=== PATIENT | male | born 1955 | race Caucasian/White ===

== ENCOUNTER 2019-06-21 08:49 | Outpatient (CLI) | payer OTHER, SELFPAY ==
[2019-06-21 09:26] LABS: Blood Urea Nitrogen 16 mg/dL (9-20); Calcium 8.9 mg/dL (8.4-10.2); Carbon Dioxide 27 mmol/L (22-30); Chloride 98 mmol/L (98-107); Estimated Glomerular Filt Rate > 60; Glucose 172 mg/dL (75-110); Potassium 4.6 mmol/L (3.4-5.0); Sodium 137 mmol/L (137-145)
== END 2019-06-21 08:50 | disposition home or self-care (01) ==
LOC: ANHSURGERY 08:52
PROVIDERS: Anesthesiology; PCP Family Medicine; Visit Provider Podiatrist Foot & Ankle Surgery
DX: E11.9 Type 2 diabetes mellitus without complications (principal)
CPT/HCPCS: 36415; 80048

== ENCOUNTER 2019-06-24 01:22 | Day surgery (SDC) | payer OTHER, SELFPAY ==
[2019-06-20 12:39] VITALS: BMI 36.9
--- NOTE | ~2019-06-24 | XR_ITS ---
EXAMINATION: XR surgery orthopedic DATE: 06/24/2019 12:07 INDICATION: Left fifth toe osteomyelitis. TECHNIQUE: 2 intraoperative spot fluoroscopic views of left foot were obtained. I was not present. Fl uoroscopy exposure time was 3 seconds. COMPARISON: None. FINDINGS: There are old changes of resection of the head of fifth metatarsal. There are erosions of b ase of the fifth proximal phalanx. The final image demonstrates resection of the fifth digit phalange s. IMPRESSION: 1. Resection of the fifth toe. Reviewed, dictated and finalized at location A. AI CULTURIST
--- NOTE | 2019-06-24 07:16 | WPDHPUPDATE1 ---
History and Physical Update Update Date/Time: 06/24/19 07:16 History and Physical has been reviewed, including an updated exam of the patient. There are NO changes in the patient's condition. Risks, benefits, and alternatives have been discussed and questions answered. Patient agrees to proceed with procedure.
[2019-06-24 08:53] VITALS: BP 155/76; PULSE 66; RESP 20; TEMP 35.8; O2SAT 100
[2019-06-24 09:27] LABS: Glucose Point of Care 126 (65-105)
--- NOTE | 2019-06-24 10:13 | WPDANESEPPF ---
Anes - Initial Pre Proc Eval Procedure: Operation Date: 06/24/19 10:30 Proposed Procedures p Partial Fifth Digit Ray Resection Left Foot - Yehuda Beckwith JR, MD Date/Time: 06/24/19 10:13 Surgeon: Yehuda Beckwith JR, MD Pre Op Diagnosis: Osteomyelitis Left Fifth Digit and Metatarsal Patient Data Age: 64 Gender: M Height: 1.75 m Weight: 118.4 kg Last Vital Signs Temp 35.8 C L 06/24/19 08:53 Pulse 66 06/24/19 08:53 Resp 20 06/24/19 08:53 BP 155/76 H 06/24/19 08:53 Pulse Ox 100 06/24/19 08:53 Allergies Allergy/AdvReac Type Severity Reaction Status Date / Time [id number]-Xce Reductase Allergy Severe SEVERE Verified 06/24/19 09:33 Inhibitor MUSCLE PAIN Home Medications Medication Instructions Recorded Confirmed Type acetaminophen [Tylenol] 650 mg PO PRN PRN 06/20/19 06/24/19 History aspirin [Adult Low Dose Aspirin] 81 mg PO DAILY 06/20/19 06/24/19 History cholecalciferol (vitamin D3) 2,000 unit PO DAILY 06/20/19 06/24/19 History docusate sodium 100 mg PO DAILY 06/20/19 06/24/19 History doxycycline hyclate 100 mg PO DAILY 06/20/19 06/24/19 History ezetimibe 10 mg PO DAILY 06/20/19 06/24/19 History famotidine 40 mg PO DAILY 06/20/19 06/24/19 History glipizide 10 mg PO BID 06/20/19 06/24/19 History insulin glargine [Lantus Solostar 20 unit SUBCUT HS 06/20/19 06/24/19 History U-100 Insulin] metformin 1,000 mg PO BID 06/20/19 06/24/19 History metoclopramide HCl 10 mg PO BID 06/20/19 06/24/19 History metoprolol succinate 25 mg PO DAILY 06/20/19 06/24/19 History omeprazole 20 mg PO DAILY 06/20/19 06/24/19 History Laboratory Tests 06/24/19 09:25 POC Capillary Glucose 126 mg/dl H mg/dl (65-105) Patient hx anesthesia problems: none Family hx anesthesia problems: none PMFSH Past Medical History Medical History (Updated 06/24/19 @ 10:19 by Earl Hare MD) Arthritis Atrial fibrillation CHF (congestive heart failure) ef 45% Diabetes Gastroesophageal reflux disease HTN (hypertension) Hypercholesterolemia PVD (peripheral vascular disease) 12/2018 LT LEG OPENED ARTERY AT [facility] Surgical History Surgical History (Updated 06/24/19 @ 10:15 by Earl Hare MD) Hx of coronary artery bypass graft 2014 4 VESSEL . PERICARDIAL EFFUSION- PERICARDIAL WINDOW Social History Social History Smoking status: Current every day smoker Alcohol intake: current Anes - Eval Final PreProcedure Day of Procedure 06/24/19 10:13 Patient weight: obese Heart: regular rate and rhythm Lungs: clear to auscultation and normal air movement Airway: Mallampati scale class II Neurological: alert and oriented Last oral intake: >/= 8 hours ASA classification: IV Emergent: no Anesthetic plan: proceed Anesthesia type and monitoring: general GIVS Informed Consent: The patient's anesthetic plan and its attendant risks and benefits were discussed with the patient/family/POA. Questions were solicited and answers provided to the satisfaction of the patient/family/POA.
[2019-06-24] MEDS: LACTATED RINGERS 1,000 ML 30 ML IV CONT ×2 (10:20→12:18)
[2019-06-24] MEDS: ceFAZolin 2 GM/D5W 50 ML 2 GM/50 ML BAG IVPB (11:29)
[2019-06-24] MEDS: LIDOCAINE HCL 2% PF INJ 5 ML VIAL 20 ML INFILTRATE (12:01)
[2019-06-24 12:18] VITALS: BP 117/65; PULSE 70; RESP 16; O2SAT 97
--- NOTE | 2019-06-24 12:20 | PM.OP ---
Procedure Note - Brief Procedure Note - Brief Date of procedure: 06/24/19 Pre-op diagnosis: Osteomyelitis Left Fifth Digit and Metatarsal Post-op diagnosis: same Procedure performed: Partial fifth ray resection left foot Anesthesia: MAC with local Surgeon: Yehuda Beckwith JR, DPM Estimated blood loss (mL): 1 Complications: No immediate complications Condition: stable Disposition: same day
[2019-06-24 12:45] VITALS: BP 119/65; PULSE 57; RESP 16; O2SAT 100
[2019-06-24 13:10] VITALS: BP 127/74; PULSE 60; RESP 16; O2SAT 100
--- NOTE | 2019-06-25 14:48 | OP_ITS ---
DATE OF PROCEDURE: 06/24/2019 PREOPERATIVE DIAGNOSIS: Osteomyelitis of the left 5th digit. POSTOPERATIVE DIAGNOSIS: Osteomyelitis of the left 5th digit. PROCEDURE: Partial fifth ray resection of the left foot. PATHOLOGY: Left 5th digit sent for gross and histopathology. ANESTHESIA: MAC with local. HEMOSTASIS: None. ESTIMATED BLOOD LOSS: 1 cc. MATERIALS USED: 3 L of sterile saline with the pulse lavage system, 4-0 Prolene. INJECTABLES: 20 cc of a 1:1 mixture of 2% lidocaine plain and 0.5% Marcaine plain. COMPLICATIONS: None. PROCEDURE IN DETAIL: Under mild sedation, patient was brought to the operating room and placed on the operating table in the supine position. The foot was then scrubbed, prepped, and draped in the usual aseptic manner. The patient had notable PAD, so tourniquet was not inflated. Procedure started in the following manner: Attention was directed to the 5th digit of the left foot where a tennis racket style incision was made along the base of the 5th digit of the left foot. This extended to the 5th metatarsal area. The incision was continued deep down through the subcutaneous tissues using sharp and blunt dissection. All bleeders were cauterized as necessary. Next the entire 5th digit was disarticulated and sent for gross and histopathology. At this point, the pulse lavage system was used to thoroughly flush the wound site with sterile saline. There was no remaining portion of the 5th digit. Fluoroscopy was taken before and after 5th digit resection. There was noted osteolysis to the base of the proximal phalanx prior to disarticulation of the 5th digit. Post disarticulation there were no remnants of that 5th digit noted. Next the skin was reapproximated and coapted utilizing 4-0 Prolene in horizontal mattress and simple interrupted suture technique. Upon completion of the procedure, the incision was dressed with Adaptic, 4x4s, Kerlix, and Coban. A postop shoe was then applied to the left foot. The patient tolerated the procedure and anesthesia well. He was transferred to the recovery room with vital signs stable and vascular status intact to all toes of the left foot. Following a period of postoperative monitoring, the patient will be discharged home on the following written and oral postoperative instructions: 1. Keep the dressing clean, dry, and intact. 2. Avoid excessive ambulation. 3. Ice and elevate the left foot when at rest. 4. Wear surgical shoe at all times with ambulating. 5. Contact Dr. Beckwith for all postop care and if any problems arise. 6. The patient already has prescription for pain medication at home that can be taken every 4-6 hours. He is neuropathic, so will likely not require any pain medication. D I MT: Contreras
== END 2019-06-24 13:20 | disposition home or self-care (01) ==
PROVIDERS: PCP Family Medicine; Visit Provider Podiatrist Foot & Ankle Surgery
PROC: (CPT 28104; principal; 2019-06-24 10:30)
DX: M86.8X7 Other osteomyelitis, ankle and foot (principal); E11.69 Type 2 diabetes mellitus with other specified complication; I11.0 Hypertensive heart disease with heart failure; I50.9 Heart failure, unspecified; E11.51 Type 2 diabetes mellitus with diabetic peripheral angiopathy without gangrene; K21.9 Gastro-esophageal reflux disease without esophagitis; I48.91 Unspecified atrial fibrillation; Z79.4 Long term (current) use of insulin; Z79.84 Long term (current) use of oral hypoglycemic drugs; Z79.82 Long term (current) use of aspirin; F17.210 Nicotine dependence, cigarettes, uncomplicated; E66.9 Obesity, unspecified; Z68.38 Body mass index [BMI] 38.0-38.9, adult
CPT/HCPCS: 28810; 76000; 88305; 88311; J0690; J2250; J2704; J3010; J7120

== ENCOUNTER 2019-08-29 08:49 | Outpatient (CLI) | payer OTHER, SELFPAY ==
[2019-08-29 09:23] LABS: Hemoglobin A1C 8.4 % (<5.7)
[2019-08-29 09:26] LABS: Cholesterol 160 mg/dL (0-200); HDL Direct 38 mg/dL; Triglycerides 144 mg/dL (<150)
[2019-08-29 09:37] LABS: LDL Cholesterol Direct 117 mg/dL
[2019-08-29 09:39] LABS: Creatinine Urine 139.2 mg/dL
[2019-08-29 09:43] LABS: MALB Creatinine Ratio 9.5 mg/g (0-30); Microalbumin Urine Random 13.2 mg/L (0-16.7)
== END 2019-08-29 08:50 | disposition home or self-care (01) ==
PROVIDERS: PCP Family Medicine; Visit Provider Family Medicine
DX: E11.59 Type 2 diabetes mellitus with other circulatory complications (principal); E78.5 Hyperlipidemia, unspecified
CPT/HCPCS: 36415; 80061; 82043; 83036

== ENCOUNTER 2020-05-14 12:17 | Emergency (ER) | payer OTHER, MEDICARE, SELFPAY ==
--- NOTE | ~2020-05-14 | XR_ITS ---
EXAMINATION: XR ribs LT 2V w CXR 2V DATE: 05/14/2020 13:02 INDICATION: Left chest injury and pain. TECHNIQUE: Frontal and lateral views of the chest and 3 views of the left ribs were obtained. COMPARISON: Chest 2 views 12/17/2017, CT abdomen and pelvis 02/26/2019 FINDINGS: CHEST TWO VIEWS: The chest demonstrates clear lungs without pneumonia, pleural effusion, or pneumotho rax. The heart size is normal. Median sternotomy wires and mediastinal surgical clips are seen, likel y from prior coronary artery bypass grafting. LEFT RIBS: There is no rib fracture. IMPRESSION: 1. No rib fracture. Reviewed, dictated and finalized at location A. NSED ACUPUNCTURIST IMPRESSION: 1. No rib fracture.
--- NOTE | 2020-05-14 12:21 | ED.GENADULT ---
HPI - General Adult General Chief complaint: Fall Stated complaint: left side pain Time Seen by Provider: 05/14/20 12:21 Source: patient Mode of arrival: ambulatory Limitations: no limitations History of Present Illness HPI narrative: 65-year-old male patient presents to the [facility] with complaints of left-sided rib pain for the past 3 days. Patient states he was at work at [employer] this past Thursday and states that he got his foot caught in a palate and tripped and fell down landing on the left side of his ribs. Denies hitting his head or loss of consciousness. Patient states he also scratched the left anterior rosado area. Patient states he has been taking Tylenol for his pain but states that he noticed that the pain was getting worse especially with deep breathing, coughing or hiccuping. Related Data Home Medications Medication Instructions Recorded Confirmed acetaminophen [Tylenol] 650 mg PO PRN PRN 06/20/19 03/07/20 aspirin [Adult Low Dose Aspirin] 81 mg PO DAILY 06/20/19 03/07/20 cholecalciferol (vitamin D3) 2,000 unit PO DAILY 06/20/19 03/07/20 docusate sodium 100 mg PO DAILY 06/20/19 03/07/20 Allergies Allergy/AdvReac Type Severity Reaction Status Date / Time Bclpevz-Ajm-Dxq Reductase Allergy Severe SEVERE Verified 03/07/20 10:22 Inhibitor MUSCLE PAIN Review of Systems Review of Systems: Narrative: CONSTITUTIONAL: Denies fever, chills, or sweats. EYES: Denies visual changes, redness, or discharge. ENT: Denies rhinorrhea, congestion, sore throat, or otalgia. CARDIOVASCULAR: Denies chest pain, palpitations, or edema. RESPIRATORY: Denies cough or dyspnea. GASTROINTESTINAL: Denies abdominal pain, nausea, vomiting, or diarrhea. GENITOURINARY: Denies dysuria or hematuria. SKIN: Denies rash or itching. MUSCULOSKELETAL: Denies back pain, joint pain, or myalgia. Positive left-sided rib pain NEUROLOGIC: Denies headache, numbness, or weakness. PSYCHIATRIC: Denies anxiety or depression. COUNTS INCLUDE 234 BEDS AT THE [facility] Past Medical History Medical History Amputated toe Atrial fibrillation -post op CABG CAD (coronary artery disease) CHF (congestive heart failure) ef 45% Diabetes Diabetic peripheral neuropathy Gastroesophageal reflux disease Gastroparesis due to DM 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 History of gout in currently not on any medications no flare-ups History of pericarditis 09/2014 - pot CABG, s/p peicardial window HTN (hypertension) Hypercholesterolemia Osteoarthritis PVD (peripheral vascular disease) 12/2018 LT LEG OPENED ARTERY AT [facility] Vitamin D deficiency Surgical History Surgical History History of angioplasty of peripheral vessel 12/2018 - LLE History of hydrocelectomy 08/2011 left Hx of coronary artery bypass graft 2014 4 VESSEL . PERICARDIAL EFFUSION- PERICARDIAL WINDOW Social History Social History Smoking status: Former smoker Alcohol intake: current Comments At the time of my signature I agree with nursing past medical history, surgical, social, and family history. There is no relevant family history pertinent to the presenting complaint. Exam Narrative: Exam Narrative: GENERAL: Well-appearing, well-nourished, and in no acute distress. HEAD: Normocephalic, atraumatic. EYES: PERRLA and EOMI. ENT: Nares clear, no rhinorrhea or epistaxis. Mucous membranes moist. NECK: Supple. No lymphadenopathy CHEST: Clear to auscultation. No respiratory distress. Patient has slight tenderness noted to the left lateral lower rib around the ninth/10th rib area. No obvious ecchymosis, bruising or redness noted at this time. HEART: Regular rate and rhythm. No murmur heard. Normal peripheral pulses. ABDOMEN: Soft, nontender, nondistended, normal active bowel sounds. EXTREMITIES:
[2020-05-14 12:32] VITALS: BP 162/74; PULSE 73; RESP 20; TEMP 36.2; O2SAT 99
== END 2020-05-14 13:18 | disposition home or self-care (01) ==
PROVIDERS: Emergency Provider Nurse Practitioner Family; PCP Family Medicine
DX: R07.81 Pleurodynia (principal); Z87.891 Personal history of nicotine dependence; I11.0 Hypertensive heart disease with heart failure; I50.9 Heart failure, unspecified; I25.10 Atherosclerotic heart disease of native coronary artery without angina pectoris; E11.42 Type 2 diabetes mellitus with diabetic polyneuropathy; E78.00 Pure hypercholesterolemia, unspecified; I73.9 Peripheral vascular disease, unspecified; Z95.1 Presence of aortocoronary bypass graft; Z98.62 Peripheral vascular angioplasty status; E11.43 Type 2 diabetes mellitus with diabetic autonomic (poly)neuropathy; K31.84 Gastroparesis; E55.9 Vitamin D deficiency, unspecified
CPT/HCPCS: 71046; 71100; 99213; G0463

== ENCOUNTER 2020-06-26 10:59 | Outpatient (CLI) | payer OTHER, MEDICARE, SELFPAY ==
[2020-06-26 11:47] LABS: Alanine Aminotransferase 29 U/L (4-50); Albumin Level 3.9 g/dL (3.5-5.1); Alkaline Phosphatase 94 U/L (38-126); Anion Gap 5 mmol/L (8-16); Aspartate Amino Transferase 24 U/L (17-59); Bilirubin,Total 0.6 mg/dL (0.2-1.3); Blood Urea Nitrogen 13 mg/dL (9-20); Calcium 8.8 mg/dL (8.4-10.2); Carbon Dioxide 31 mmol/L (22-30); Chloride 101 mmol/L (98-107); Cholesterol 117 mg/dL (0-200); Estimated Glomerular Filt Rate > 60; Glucose 254 mg/dL (75-110); HDL Direct 38 mg/dL; Potassium 5.2 mmol/L (3.4-5.0); Sodium 137 mmol/L (137-145); Triglycerides 118 mg/dL (<150)
[2020-06-26 11:55] LABS: Hemoglobin A1C 11.3 % (<5.7)
[2020-06-26 11:58] LABS: LDL Cholesterol Direct 64 mg/dL
[2020-06-26 12:02] LABS: Basophils Percent Auto 0.5 % (0.2-1.2); Eosinophils Absolute Auto 0.1 K/mm3 (0-0.3); Hematocrit 41.2 % (42.0-52.0); Immature Granulocyte Absolute 0.06 K/mm3 (0.00-0.031); Immature Granulocyte Percent A 1.1 % (0-0.5); Lymphocytes Absolute Auto 1.13 K/mm3 (0.9-3.2); Lymphocytes Percent Auto 20.1 % (18.3-44.2); Mean Corpuscular Hemoglobin 30.8 pg (26-34); Mean Corpuscular Volume 90.7 fl (80-100); Mean Platelet Volume 11.2 fl (7.4-10.4); Monocytes Absolute Auto 0.5 K/mm3 (0.1-0.6); Monocytes Percent Auto 8.9 % (2.6-8.5); Neutrophils Absolute Auto 3.8 K/mm3 (1.3-6.7); Neutrophils Percent Auto 67.4 % (45.5-73.1); Platelet Count Result 209 k/mm3 (150-375); Red Blood Count 4.54 M/mm3 (4.6-6.20); Red Cell Distribution Width 13.3 % (11.5-14.5); White Blood Count 5.6 K/mm3 (4.5-10.0)
[2020-06-26 12:17] LABS: Vitamin D 25 Hydroxy 38.9 ng/mL
[2020-06-26 12:18] LABS: Prostate Specific Antigen 2.4 ng/mL (< OR = 4.0)
[2020-06-26 12:31] LABS: Thyroid Stimulating Hormone Reflex 0.684 uIU/mL (0.465-4.68)
[2020-06-26 12:58] LABS: Microalbumin Urine Random 17.6 mg/L (0-16.7)
[2020-06-26 12:59] LABS: MALB Creatinine Ratio 11.4 mg/g (0-30)
== END 2020-06-26 11:00 | disposition home or self-care (01) ==
PROVIDERS: PCP Family Medicine; Visit Provider Family Medicine
DX: Z00.00 Encounter for general adult medical examination without abnormal findings (principal); E55.9 Vitamin D deficiency, unspecified; E11.9 Type 2 diabetes mellitus without complications; E78.5 Hyperlipidemia, unspecified; I10 Essential (primary) hypertension; Z12.5 Encounter for screening for malignant neoplasm of prostate; E78.00 Pure hypercholesterolemia, unspecified
CPT/HCPCS: 36415; 80053; 80061; 82043; 82306; 83036; 84153; 84443; 85025; G0103

== ENCOUNTER 2020-11-08 09:32 | Outpatient (CLI) | payer OTHER, MEDICARE, SELFPAY ==
[2020-11-08 10:36] LABS: Alanine Aminotransferase 24 U/L (4-50); Alkaline Phosphatase 68 U/L (38-126); Anion Gap 7 mmol/L (8-16); Aspartate Amino Transferase 26 U/L (17-59); Bilirubin,Total 0.6 mg/dL (0.2-1.3); Blood Urea Nitrogen 19 mg/dL (9-20); Calcium 8.9 mg/dL (8.4-10.2); Carbon Dioxide 28 mmol/L (22-30); Chloride 103 mmol/L (98-107); Estimated Glomerular Filt Rate > 60; Glucose 172 mg/dL (75-110); Potassium 4.8 mmol/L (3.4-5.0); Sodium 138 mmol/L (137-145)
== END 2020-11-08 09:33 | disposition home or self-care (01) ==
LOC: ANHLAB 09:34
PROVIDERS: PCP Family Medicine; Visit Provider Family Medicine
DX: I10 Essential (primary) hypertension (principal); E11.9 Type 2 diabetes mellitus without complications
CPT/HCPCS: 36415; 80053; 83036

== ENCOUNTER 2021-03-13 08:42 | Outpatient (CLI) | payer OTHER, MEDICARE, SELFPAY ==
[2021-03-13 09:26] LABS: Anion Gap 11 mmol/L (8-16); Blood Urea Nitrogen 18 mg/dL (9-20); Calcium 8.9 mg/dL (8.4-10.2); Carbon Dioxide 25 mmol/L (22-30); Chloride 101 mmol/L (98-107); Estimated Glomerular Filt Rate > 60; Glucose 275 mg/dL (65-110); Potassium 4.8 mmol/L (3.4-5.0); Sodium 137 mmol/L (137-145)
== END 2021-03-13 08:43 | disposition home or self-care (01) ==
PROVIDERS: Anesthesiology; PCP Family Medicine; Visit Provider Podiatrist Foot & Ankle Surgery
DX: E11.9 Type 2 diabetes mellitus without complications (principal); Z01.818 Encounter for other preprocedural examination
CPT/HCPCS: 36415; 80048

== ENCOUNTER 2021-03-15 02:23 | Day surgery (SDC) | payer OTHER, MEDICARE, SELFPAY ==
[2021-03-08 13:16] VITALS: BMI 38.4
--- NOTE | ~2021-03-15 | XR_ITS ---
EXAMINATION: XR surgery orthopedic DATE: 03/15/2021 11:15 INDICATION: Right fifth metatarsal osteotomy TECHNIQUE: A single fluoroscopic spot image of the right forefoot was obtained during procedure perfo rmed by Dr. Beckwith. Radiologist was not present for the imaging or procedure. The amount of fluoros copy time used during this procedure was 0.1 minutes. COMPARISON: None. FINDINGS: Osteotomy with resection of the head of the fifth metatarsal. The remainder of the more distal fifth toe remains intact. Expected small amount of soft tissue gas at the operative bed. No fracture. Mild osteoarthritis at the first metatarsophalangeal joint. IMPRESSION: 1. Fluoroscopy utilized during resection of the head of the fifth metatarsal. See procedure note for further detail. Reviewed, dictated and finalized at location A. IMPRESSION: 1. Fluoroscopy utilized during resection of the head of the fifth metatarsal. S ee procedure note for further detail.
--- NOTE | 2021-03-15 08:02 | WPDHPUPDATE1 ---
History and Physical Update Update Date/Time: 03/15/21 08:02 History and Physical has been reviewed, including an updated exam of the patient. There are NO changes in the patient's condition. Risks, benefits, and alternatives have been discussed and questions answered. Patient agrees to proceed with procedure.
--- NOTE | 2021-03-15 09:57 | WPDANESEPPF ---
Anes - Initial Pre Proc Eval Procedure: Operation Date: 03/15/21 10:30 Proposed Procedures p Fifth Metatarsal Head Resection Right Foot - Yehuda Beckwith JR, MD Date/Time: 03/15/21 09:57 Surgeon: Yehuda Beckwith JR, MD Pre Op Diagnosis: Chronic Ulcer Right Foot Patient Data Age: 66 Gender: M Height: 1.75 m Weight: 117.93 kg Allergies Allergy/AdvReac Type Severity Reaction Status Date / Time No Known Allergies Allergy Verified 03/08/21 13:13 Home Medications Medication Instructions Recorded Confirmed Type acetaminophen [Tylenol] 650 mg PO PRN PRN 06/20/19 03/08/21 History aspirin [Adult Low Dose Aspirin] 81 mg PO DAILY 06/20/19 03/08/21 History cholecalciferol (vitamin D3) 2,000 unit PO DAILY 06/20/19 03/08/21 History docusate sodium 100 mg PO HS 06/20/19 03/08/21 History metoclopramide HCl 10 mg tablet 10 mg PO BID #180 tablet 09/12/19 03/08/21 Rx pen needle, diabetic 31 gauge x #100 ea 09/18/20 12/31/20 Rx 5/16 metoprolol succinate 25 mg 25 mg PO DAILY #90 tablet 12/17/20 03/08/21 Rx tablet,extended release 24 hr insulin glargine 100 unit/mL (3 35 unit SUBCUT DAILY #21 ml 12/31/20 03/08/21 Rx mL) subcutaneous pen glipizide 10 mg tablet 10 mg PO BID #120 tablet 02/19/21 03/08/21 Rx atorvastatin 40 mg PO HS 03/08/21 03/08/21 History ezetimibe 10 mg PO HS 03/08/21 03/08/21 History sitagliptin-metformin [Janumet XR] 1 tablet PO HS 03/08/21 03/08/21 History Patient hx anesthesia problems: none Family hx anesthesia problems: none Results Review: All pre-operative results and documents have been reviewed as part of the pre-operative evaluation. [facility] Past Medical History Medical History Amputated toe Atrial fibrillation -post op CABG CAD (coronary artery disease) CHF (congestive heart failure) ef 45% Diabetes Diabetic Foot Ulcer Diabetic peripheral neuropathy Gastroesophageal reflux disease Gastroparesis due to DM 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 History of gout in currently not on any medications no flare-ups History of pericarditis 09/2014 - pot CABG, s/p peicardial window HTN (hypertension) Hypercholesterolemia Osteoarthritis PVD (peripheral vascular disease) 12/2018 LT LEG OPENED ARTERY AT [facility] Vitamin D deficiency Surgical History Surgical History History of angioplasty of peripheral vessel 12/2018 - LLE History of hydrocelectomy 08/2011 left Hx of coronary artery bypass graft 2014 4 VESSEL . PERICARDIAL EFFUSION- PERICARDIAL WINDOW Social History Social History Smoking packs per day: 1 Smoking cigarettes per day: 20.0 Years smoked: 35 Smoking pack-years: 35.00 Smoking status: Former smoker Smoking end date: 05/25/10 Alcohol intake: never Substance use: never Substance use type: does not use Living arrangements: with family Additional living arrangements comments: Gender identity (if verbalized by the patient): Male Sexual Orientation (if Verbalized by the Patient): Straight or Heterosexual Spiritual care concerns: No Anes - Eval Final PreProcedure Day of Procedure 03/15/21 09:57 Patient weight: obese Heart: regular rate and rhythm Lungs: clear to auscultation Airway: Mallampati scale class II Neurological: alert and oriented Last oral intake: >/= 8 hours ASA classification: IV Emergent: no Anesthetic plan: proceed Anesthesia type and monitoring: general LMA and standard monitoring Results Review: All pre-operative results and documents have been reviewed as part of the pre-operative evaluation. Informed Consent: The patient's anesthetic plan and its attendant risks and benefits were discussed with the patient/family/POA. Questions were solicited and answers provided to the satisfacti
[2021-03-15] MEDS: LACTATED RINGERS 1,000 ML 30 ML IV CONT (10:00)
[2021-03-15 10:15] VITALS: BP 148/83; PULSE 71; RESP 16; TEMP 36.1; O2SAT 100
[2021-03-15 10:19] LABS: Glucose Point of Care 173 mg/dl (65-105)
[2021-03-15] MEDS: ceFAZolin 2 GM/D5W 50 ML 2 GM/50 ML BAG IVPB (10:44)
[2021-03-15] MEDS: LIDOCAINE HCL 2% PF INJ 5 ML VIAL 20 ML INFILTRATE (11:01)
[2021-03-15 11:19] VITALS: BP 118/67; PULSE 72; RESP 16; O2SAT 98
[2021-03-15 11:28] LABS: Glucose Point of Care 150 mg/dl (65-105)
[2021-03-15 11:45] VITALS: BP 127/82; PULSE 66; RESP 16; O2SAT 99
--- NOTE | 2021-03-15 11:59 | W.PM.PROC2 ---
Procedure Note - Detailed Date of Procedure 03/15/21 Pre-op Diagnosis Chronic Ulcer Right Foot Post-op Diagnosis same Procedure Performed Fifth metatarsal head resection right foot Surgeon Yehuda Beckwith JR, DPM Anesthesia MAC and local Indications Chronic ulceration right foot Description of Procedure Under mild sedation, the patient was brought in to the operating room, placed on the operating table in the supine position. A pneumatic ankle tourniquet was placed about the patient's leg. Following monitored anesthesia care, local anesthesia was obtained about the patients ankle utilizing 20 mL of a 1:1 mixture of 2% Lidocaine plain and 0.5% Marcaine plain. The foot was then scrubbed, prepped, and draped in the usual aseptic manner. An Esmarch bandage was then used to exsanguinate the patient's foot and the pneumatic ankle tourniquet was then inflated. Attention was directed to the dorsal lateral aspect of the fifth metatarsal head where a 2 cm incision was made just lateral to the extensor digitorum longus tendon to the fifth digit to the shaft of the fifth metatarsal. The incision was continued deep down through the subcutaneous tissues using sharp and blunt dissection. All bleeders were cauterized as necessary.A full-length periosteal incision was made overlying the fifth metatarsal distally. A McGlamry Elevator was used to free the plantar structures to the fifth metatarsal head. Next, a sagittal bone saw was used to resect the head of the fifth metatarsal proximal at the neck of the 5th metatarsal. The fifth metatarsal was removed from the operative site and placed on the back table and sent for gross and histopathology. No gross abnormalities to the head of the fifth metatarsal noted. No purulence noted. Fluoroscopy was used to make sure that the resected distal fifth metatarsal was adequate. The edges were smoothed out by feathering with the saw blade. Next, the periosteum and capsular structures overlying the 5th metatarsophalangeal joints were reapproximated with 4-0 Vicryl. Next, subcutaneous structures were reapproximated and coapted utilizing 4-0 Vicryl. Next, the skin was reapproximated and coapted utilizing 4-0 Prolene in running simple interrupted suture fashion technique. Upon completion of the procedure, the incision was dressed with Adaptic, 4 x 4's, Kerlix, and Coban. The pneumatic ankle tourniquet was then deflated and a prompt hyperemic response noted to all digits of the foot. A surgical shoe was then applied. The patient did very well with the procedure and the anesthesia. The patient was transferred to the recovery room with vital signs stable and vascular status intact to all toes of the affected foot. Following a period of postoperative monitoring, the patient will be discharged home on the following written and oral postoperative instructions: 1. Keep the dressing clean, dry, and intact. Use a cast protector bag with showers. 2. The patient should use a surgical shoe for ambulation postoperatively. 3. The patient should be on bedrest with bathroom privileges and elevate the affected foot when at rest. 4. The patient to contact Dr. Beckwith for all postop care and if any problems arise. 5. The patient may need Tylenol 325 as needed for pain. 6. Take one Aspirin 325mg every 24hours for two weeks post operatively to prevent DVT. Estimated Blood Loss 1 Drains No Packing No Pathology yes Complications No immediate complications Condition stable Disposition same day
[2021-03-15 12:15] VITALS: BP 139/62; PULSE 68; RESP 16
--- NOTE | 2021-03-15 14:00 | SUR.PHASEII ---
1230 DRESSED. STILL AWAITING RIDE.
== END 2021-03-15 13:22 | disposition home or self-care (01) ==
PROVIDERS: PCP Family Medicine; Visit Provider Podiatrist Foot & Ankle Surgery
PROC: (CPT 28104; principal; 2021-03-15 10:30)
DX: E11.621 Type 2 diabetes mellitus with foot ulcer (principal); L97.519 Non-pressure chronic ulcer of other part of right foot with unspecified severity; M21.621 Bunionette of right foot; E11.51 Type 2 diabetes mellitus with diabetic peripheral angiopathy without gangrene; E11.42 Type 2 diabetes mellitus with diabetic polyneuropathy; I48.91 Unspecified atrial fibrillation; I11.0 Hypertensive heart disease with heart failure; I50.9 Heart failure, unspecified; K21.9 Gastro-esophageal reflux disease without esophagitis; E11.43 Type 2 diabetes mellitus with diabetic autonomic (poly)neuropathy; K31.84 Gastroparesis; E78.00 Pure hypercholesterolemia, unspecified; E55.9 Vitamin D deficiency, unspecified; Z95.1 Presence of aortocoronary bypass graft; Z87.891 Personal history of nicotine dependence; E66.9 Obesity, unspecified; Z68.41 Body mass index [BMI] 40.0-44.9, adult; Z79.4 Long term (current) use of insulin; Z79.84 Long term (current) use of oral hypoglycemic drugs
CPT/HCPCS: 28110; 36415; 80048; 82948; 88304; 88309; 88311; A9270; J0690; J2704; J7120

== ENCOUNTER 2021-04-29 08:45 | Outpatient (CLI) | payer OTHER, MEDICARE, SELFPAY ==
[2021-04-29 09:40] LABS: Basophils Percent Auto 0.4 % (0.2-1.2); Eosinophils Absolute Auto 0.1 K/mm3 (0-0.3); Eosinophils Percent Auto 1.8 % (0-4.4); Hematocrit 41.2 % (42.0-52.0); Hemoglobin 13.7 g/dL (14.0-18.0); Immature Granulocyte Absolute 0.03 K/mm3 (0.00-0.031); Immature Granulocyte Percent A 0.5 % (0-0.5); Lymphocytes Absolute Auto 1.22 K/mm3 (0.9-3.2); Mean Corpuscular HGB Conc 33.3 g/dl (32-36); Mean Corpuscular Hemoglobin 31.1 pg (26-34); Mean Corpuscular Volume 93.6 fl (80-100); Mean Platelet Volume 10.8 fl (7.4-10.4); Monocytes Absolute Auto 0.5 K/mm3 (0.1-0.6); Monocytes Percent Auto 8.1 % (2.6-8.5); Neutrophils Absolute Auto 3.7 K/mm3 (1.3-6.7); Neutrophils Percent Auto 67.2 % (45.5-73.1); Platelet Count Result 191 k/mm3 (150-375); Red Cell Distribution Width 13.5 % (11.5-14.5); White Blood Count 5.5 K/mm3 (4.5-10.0)
[2021-04-29 09:44] LABS: Hemoglobin A1C 9.5 % (<5.7)
[2021-04-29 09:49] LABS: Alanine Aminotransferase 30 U/L (4-50); Albumin Level 4.2 g/dL (3.5-5.1); Alkaline Phosphatase 88 U/L (38-126); Anion Gap 9 mmol/L (8-16); Aspartate Amino Transferase 32 U/L (17-59); Bilirubin,Total 0.5 mg/dL (0.2-1.3); Blood Urea Nitrogen 16 mg/dL (9-20); Calcium 8.9 mg/dL (8.4-10.2); Carbon Dioxide 25 mmol/L (22-30); Chloride 99 mmol/L (98-107); Cholesterol 131 mg/dL (0-200); Estimated Glomerular Filt Rate > 60; Glucose 155 mg/dL (65-110); HDL Direct 31 mg/dL; Potassium 4.5 mmol/L (3.4-5.0); Sodium 133 mmol/L (137-145); Triglycerides 101 mg/dL (<150)
[2021-04-29 10:00] LABS: LDL Cholesterol Direct 76 mg/dL
[2021-04-29 10:18] LABS: Prostate Specific Antigen 2.9 ng/mL (< OR = 4.0)
[2021-04-29 11:54] LABS: Microalbumin Urine Random 15.8 mg/L (0-16.7)
[2021-04-29 11:56] LABS: Creatinine Urine 147.4 mg/dL; MALB Creatinine Ratio 10.7 mg/g (0-30)
[2021-04-29 13:36] LABS: Vitamin D 25 Hydroxy 48.9 ng/mL
== END 2021-04-29 08:46 | disposition home or self-care (01) ==
PROVIDERS: PCP Family Medicine; Visit Provider Family Medicine
DX: Z00.00 Encounter for general adult medical examination without abnormal findings (principal); E11.9 Type 2 diabetes mellitus without complications; E53.8 Deficiency of other specified B group vitamins; I10 Essential (primary) hypertension; Z12.5 Encounter for screening for malignant neoplasm of prostate; E55.9 Vitamin D deficiency, unspecified; E78.5 Hyperlipidemia, unspecified
CPT/HCPCS: 36415; 80053; 80061; 82043; 82306; 82607; 83036; 84153; 84443; 85025; G0103

== ENCOUNTER 2021-07-23 10:45 | Outpatient (CLI) | payer MEDICARE, SELFPAY ==
--- NOTE | ~2021-07-23 | CT_ITS ---
EXAMINATION: CT lung screening DATE: 07/23/2021 11:27 INDICATION: Screening for malignant neoplasm of the lung TECHNIQUE: Computed tomography (CT) of the chest was performed without intravenous contrast. The dose -length product was 428.02 mGy-cm. Automated exposure control and iterative reconstruction technique were employed. COMPARISON: CT dated 10/15/2014 FINDINGS: No thoracic lymphadenopathy. There is atherosclerosis of the aorta and coronary arteries. S tatus post median sternotomy for CABG. Heart size normal. No significant pleural or pericardial effus ion. There are cholecystectomy clips. There is a nonobstructing 3 mm right renal stone. No endobronch ial lesions. No suspicious pulmonary nodules or masses. No endobronchial lesions. No pneumothorax. Mo derate thoracic spondylosis. IMPRESSION: 1. Lung-RADS category 1: Negative. Continue annual screening with noncontrast low-dose chest CT in 12 months. Reviewed, dictated and finalized at location A. CAL DESIGN ENGINEER IMPRESSION: 1. Lung-RADS category 1: Negative. Continue annual screening with noncontrast l ow-dose chest CT in 12 months.
== END 2021-07-23 10:46 | disposition home or self-care (01) ==
PROVIDERS: PCP Family Medicine; Visit Provider Family Medicine
DX: Z12.2 Encounter for screening for malignant neoplasm of respiratory organs (principal); Z87.891 Personal history of nicotine dependence
CPT/HCPCS: 71271

== ENCOUNTER 2021-12-14 08:02 | Inpatient (IN) | payer OTHER, MEDICARE, SELFPAY ==
[2021-12-14] VITALS (12 sets, daily range): BP systolic 150–185; BP diastolic 64–97; PULSE 70–99; RESP 16–20; TEMP 36.2–36.8; O2SAT 97–100; BMI 37.4
--- NOTE | ~2021-12-14 | US_ITS ---
EXAMINATION: US arterial ankle brachial ind DATE: 12/15/2021 15:18 INDICATION: Peripheral arterial occlusive disease presenting with foot ulcerations. TECHNIQUE: Segmental pressures and plethysmographic and Doppler waveforms of the brachial and lower e xtremity arteries were obtained. COMPARISON: None. FINDINGS: Right and left brachial artery pressures of 186 mm Hg and 191 mm Hg, respectively, are concordant (no rmal difference <= 30 mmHg). The right ankle-brachial index (MAYDA) is 0.77 (normal >= 0.9-1.0). The right great toe-brachial index (TBI) is 0.51 (normal >= 0.65). Arterial Doppler waveforms are biphasic with brisk systolic upstrokes at both right posterior tibial and dorsalis pedis arteries. The left MAYDA is 0.88. The left TBI is 0.64. Arterial Doppler waveforms are biphasic with brisk systol ic upstrokes at both left posterior tibial and dorsalis pedis arteries. IMPRESSION: 1. Mild bilateral arterial occlusive disease with mildly decreased bilateral ABIs and right TBI. Reviewed, dictated and finalized at location A. IMPRESSION: 1. Mild bilateral arterial occlusive disease with mildly decreased bilateral AB Is and right TBI.
--- NOTE | ~2021-12-14 | XR_ITS ---
EXAMINATION: XR foot LT 2V DATE: 12/17/2021 15:04 INDICATION: Status post surgery to the left foot TECHNIQUE: Dorsoplantar and lateral views of the left foot were obtained. COMPARISON: 12/14/2021 FINDINGS: Again seen are changes of prior transmetatarsal amputation of the fifth toe at the level of the neck of the fifth metatarsal which demonstrates a smooth corticated osteotomy margin. Amputation of the di stal phalanx of the left fourth toe at the level of the distal interphalangeal joint. Expected minima l amount of postoperative gas in the soft tissues at level of the neck of the proximal phalanx. Bone alignment is normal. No fractures identified. Mild polyarticular osteoarthritis involving multiple shaila ints in the mid and forefoot. No erosions or osteolysis to suggest ostomy myelitis of the remaining b ones. Enthesophytes at the dorsal aspect of several of the tarsal bones and at the posterior tuberosi ty of the calcaneus. IMPRESSION: 1. Expected appearance post amputation of the distal phalanx of the left fourth toe the level of the distal interphalangeal joint. No other acute osseous abnormality. Reviewed, dictated and finalized at location A. IMPRESSION: 1. Expected appearance post amputation of the distal phalanx of the left fourth toe the level of the distal interphalangeal joint. No other acute osseous abno rmality.
--- NOTE | ~2021-12-14 | XR_ITS ---
XR toe 4th LT min 2V 12/14/2021 08:34 Indication: Left fourth toe pain. Diabetic foot. Procedure: 4 views left fourth toe Comparison: No prior studies for comparison. Findings: There is subtle osteolysis tuft of the fourth distal phalanx with overlying soft tissue swe lling, suspicious for osteomyelitis. There is amputation of the fifth toe at the metatarsal. Impression: 1: Subtle osteolysis tuft of the fourth distal phalanx with overlying soft tissue swelling, suspiciou s for osteomyelitis. Reviewed, dictated and finalized at location A. Impression: 1: Subtle osteolysis tuft of the fourth distal phalanx with overlying soft tiss ue swelling, suspicious for osteomyelitis.
[2021-12-14 08:31] LABS: Basophils Percent Auto 0.3 % (0.2-1.2); Eosinophils Absolute Auto 0.1 K/mm3 (0-0.3); Eosinophils Percent Auto 2.2 % (0-4.4); Hematocrit 39.9 % (42.0-52.0); Hemoglobin 13.1 g/dL (14.0-18.0); Immature Granulocyte Absolute 0.02 K/mm3 (0.00-0.031); Immature Granulocyte Percent A 0.3 % (0-0.5); Lymphocytes Absolute Auto 0.97 K/mm3 (0.9-3.2); Lymphocytes Percent Auto 16.4 % (18.3-44.2); Mean Corpuscular HGB Conc 32.8 g/dl (32-36); Mean Corpuscular Volume 94.3 fl (80-100); Mean Platelet Volume 10.3 fl (7.4-10.4); Monocytes Absolute Auto 0.5 K/mm3 (0.1-0.6); Neutrophils Absolute Auto 4.2 K/mm3 (1.3-6.7); Neutrophils Percent Auto 71.8 % (45.5-73.1); Platelet Count Result 215 k/mm3 (150-375); Red Blood Count 4.23 M/mm3 (4.6-6.20); Red Cell Distribution Width 14.1 % (11.5-14.5); White Blood Count 5.9 K/mm3 (4.5-10.0)
[2021-12-14 08:49] LABS: Alanine Aminotransferase 26 U/L (6-50); Albumin Level 4.3 g/dL (3.5-5.1); Alkaline Phosphatase 79 U/L (38-126); Anion Gap 7 mmol/L (8-16); Aspartate Amino Transferase 28 U/L (17-59); Bilirubin,Total 0.8 mg/dL (0.2-1.3); Blood Urea Nitrogen 13 mg/dL (9-20); CRP 1.2 mg/dL (<1.0); Calcium 8.7 mg/dL (8.4-10.2); Carbon Dioxide 27 mmol/L (22-30); Chloride 102 mmol/L (98-107); Estimated CRCL calculation 85 ml/min; Estimated Glomerular Filt Rate > 60; Glucose 244 mg/dL (65-110); Potassium 4.5 mmol/L (3.4-5.0); Sodium 136 mmol/L (137-145)
--- NOTE | 2021-12-14 08:58 | ED.LOWEXIN ---
HPI - Extremity Injury (Lower) General Chief Complaint: Extremity Injury, Lower Stated Complaint: wound to foot Time Seen by Provider: 12/14/21 08:08 Source: patient, RN notes reviewed and old records reviewed Mode of arrival: ambulatory Limitations: no limitations History of Present Illness HPI Narrative: This is a 66 year old male with history of DM who presents for evaluation of left 4th toe ulcer. Patient noticed swelling and discoloration to his left great toe last night. He has minimal pain due to diabetic neuropathy. He reports history osteomyelitis in the past so he want to catch infection before it worsened. His mechanical unit repairer is Dr. Beckwith. He denies fever, chills, nausea or vomiting. He states his blood sugars are not well controlled and they are usually in the 200s. Injury: Left: toes (4th) Other symptoms: none Treatments prior to arrival: bandage Related Data Home Medications Medication Instructions Recorded Confirmed acetaminophen 325 mg tablet 650 mg PO PRN PRN Pain 06/20/19 12/14/21 (Tylenol) aspirin 81 mg tablet,delayed 81 mg PO DAILY 06/20/19 12/14/21 release (Adult Low Dose Aspirin) cholecalciferol (vitamin D3) 50 2,000 unit PO DAILY 06/20/19 12/14/21 mcg (2,000 unit) tablet docusate sodium 100 mg tablet 100 mg PO HS 06/20/19 12/14/21 ezetimibe 10 mg tablet 10 mg PO HS 03/08/21 12/14/21 insulin glargine 100 unit/mL (3 42 unit subcut DAILY 09/02/21 12/14/21 mL) subcutaneous pen (Lantus Solostar U-100 Insulin) Allergies Allergy/AdvReac Type Severity Reaction Status Date / Time No Known Allergies Allergy Verified 09/02/21 10:29 Review of Systems Review of Systems: All systems reviewed & are unremarkable except as noted in HPI and below Cardiovascular: Cardiovascular: Denies chest pain Respiratory: Respiratory: Denies chest congestion and Denies cough Gastrointestinal: Gastrointestinal: Denies nausea and Denies vomiting Musculoskeletal: Musculoskeletal: Reports arthralgias Integumentary/Breasts: Skin/Breast: Reports skin ulcer Neurologic: Denies focal weakness and Reports numbness PMFSH Past Medical History Medical History Amputated toe Atrial fibrillation -post op CABG CAD (coronary artery disease) CHF (congestive heart failure) ef 45% Diabetes Diabetic peripheral neuropathy Gastroesophageal reflux disease Gastroparesis due to DM 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 History of gout in currently not on any medications no flare-ups History of pericarditis 09/2014 - pot CABG, s/p peicardial window HTN (hypertension) Hypercholesterolemia Osteoarthritis PVD (peripheral vascular disease) 12/2018 LT LEG OPENED ARTERY AT [facility] Vitamin D deficiency Surgical History Surgical History History of angioplasty of peripheral vessel 12/2018 - LLE History of foot surgery (~02/2021) 03/14: Fifth metatarsal head resection right foot. History of hydrocelectomy 08/2011 left Hx of coronary artery bypass graft 2014 4 VESSEL . PERICARDIAL EFFUSION- PERICARDIAL WINDOW Social History Social History Smoking packs per day: 1 Smoking cigarettes per day: 20.0 Years smoked: 30 Smoking pack-years: 30.00 Smoking status: Former smoker Tobacco type: cigarettes Smoking end date: 05/25/10 Alcohol intake: never Substance use: never Substance use type: does not use Additional living arrangements comments: Gender identity (if verbalized by the patient): Male Sexual Orientation (if Verbalized by the Patient): Straight or Heterosexual Spiritual care concerns: No Exam Const: General: no acute distress and alert Nutritional Appearance: well nourished Orientation/consciousness: patient oriented x3
[2021-12-14 11:44] LABS: Procalcitonin 0.1 ng/mL
[2021-12-14 12:13] LABS: SARS-CoV-2 RNA PCR Negative
--- NOTE | 2021-12-14 13:22 | PM.IMHP ---
H&P: HPI History of Present Illness Date/Time: 12/14/21 1248 Chief Complaint: Wound to left foot, 4th toe Narrative: This 66-year-old male patient with significant past medical history of coronary artery disease status post CABG x4 in 2015, congestive heart failure, diabetes mellitus type 2, peripheral neuropathy, gastroparesis, gout, hypertension, hyperlipidemia, peripheral vascular disease status post amputation of a toe on left foot, vitamin-D deficiency presents to the emergency room today with complaints of having swelling, redness, ulcer on the plantar surface of the left 4th toe. Patient feels minimal pain and/or discomfort in that area secondary to his peripheral neuropathy. He does have a history of osteomyelitis that he sees Dr. Beckwith for. He underwent ray amputation of the left 5th toe last year. Patient reports that these issues with his feet have been long-term and that yesterday although he cannot feel pain he had enough sensation to identify that something was wrong with the toes on his left foot. Upon returning home he removed his sock and found the 4th toe swollen, red and draining on plantar surface. Patient denies any recent fevers. He denies any recent flu-like illness or symptoms. He knew he needed to get to the emergency room for evaluation right away given his past medical history. In the emergency room workup was performed. White blood cell count is 5.9, metabolic panel is within normal limits, x-ray of the left 4th toe shows subtle osteolysis of the tuft of the 4th distal phalanx with overlying soft tissue swelling suspicious for osteomyelitis. The ER physician spoke with patient's stopping builder, Dr. Beckwith, and he advised that he will see patient tomorrow and to admit patient continue IV antibiotics of Primaxin and vancomycin at this time. He would like infectious disease pharmacist consult placed. Patient has been admitted to hospitalist service at this time for continued workup and management. At the time of my assessment this patient denies any chest pain, dyspnea, nausea, vomiting, diarrhea or urinary complaints. He is very pleasant and acknowledges the extent of his wound it is agreeable to our plan of care. Review of Systems Review of Systems: All systems reviewed & are unremarkable except as noted in HPI and below PMFSH Past Medical History Medical History Amputated toe Atrial fibrillation -post op CABG CAD (coronary artery disease) CHF (congestive heart failure) ef 45% Diabetes Diabetic peripheral neuropathy Gastroesophageal reflux disease Gastroparesis due to DM 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 History of gout in currently not on any medications no flare-ups History of pericarditis 09/2014 - pot CABG, s/p peicardial window HTN (hypertension) Hypercholesterolemia Osteoarthritis PVD (peripheral vascular disease) 12/2018 LT LEG OPENED ARTERY AT [facility] Vitamin D deficiency Surgical History Surgical History History of angioplasty of peripheral vessel 12/2018 - LLE History of foot surgery (~02/2021) 03/14: Fifth metatarsal head resection right foot. History of hydrocelectomy 08/2011 left Hx of coronary artery bypass graft 2014 4 VESSEL . PERICARDIAL EFFUSION- PERICARDIAL WINDOW Social History Social History Smoking packs per day: 1 Smoking cigarettes per day: 20.0 Years smoked: 35 Smoking pack-years: 35.00 Smoking end date: 05/25/10 Alcohol intake: never Substance use: never Substance use type: does not use Additional living arrangements comments: Gender identity (if verbalized by the patient): Male Sexual Orientation (if Verbalized by the Patient): Straight or Heterosexual Spiritual care concerns: No
[2021-12-14 14:29] LABS: Hemoglobin A1C 9.7 % (<5.7)
[2021-12-14 15:47] LABS: Glucose Point of Care 157 mg/dl (65-105)
--- NOTE | 2021-12-14 15:58 | ADMGEN ---
This patient, Wilton Lee, was admitted to 2 Medical Room 240-01. Patient/family oriented to hospital policies and general routines including ID bracelet, bed and alarms, visiting hours, pain management, procedures, bathroom and other care routines, personal items, smoking policy, room service/diet, and visiting hours. Information on how to activate the Rapid Response Team has been discussed. Patient/Family are encouraged to report perceived risks to care and to ask questions if they do not understand what they are told or what they should do.
--- NOTE | 2021-12-14 16:32 | PC.NURSE ---
Spoke with pharmacist, Ashok RE: 1335 dose of IV Primaxin that was scheduled for ER--dose not given. Next dose is due at 1800. He instructed to give dose 1800 dose now and disregard 1335 dose.
[2021-12-14] MEDS: EZETIMIBE 10 MG TABLET PO (21:38)
[2021-12-14] MEDS: ATORVASTATIN 40 MG TABLET PO (21:38)
[2021-12-14] MEDS: DOCUSATE SODIUM 100 MG CAPSULE PO (21:42)
[2021-12-14] MEDS: INSULIN GLARGINE (*BKC) 100 UNITS/ML 42 UNITS SUB-Q (21:43)
[2021-12-14 22:09] LABS: Glucose Point of Care 195 mg/dl (65-105)
[2021-12-15 02:59] VITALS: BP 152/79; PULSE 75; RESP 18; TEMP 36.1; O2SAT 98
[2021-12-15 05:12] LABS: Basophils Percent Auto 0.3 % (0.2-1.2); Eosinophils Absolute Auto 0.2 K/mm3 (0-0.3); Eosinophils Percent Auto 2.4 % (0-4.4); Hematocrit 38.9 % (42.0-52.0); Hemoglobin 12.9 g/dL (14.0-18.0); Immature Granulocyte Absolute 0.03 K/mm3 (0.00-0.031); Immature Granulocyte Percent A 0.5 % (0-0.5); Lymphocytes Absolute Auto 0.98 K/mm3 (0.9-3.2); Lymphocytes Percent Auto 15.9 % (18.3-44.2); Mean Corpuscular HGB Conc 33.2 g/dl (32-36); Mean Corpuscular Hemoglobin 30.4 pg (26-34); Mean Corpuscular Volume 91.7 fl (80-100); Mean Platelet Volume 10.8 fl (7.4-10.4); Monocytes Absolute Auto 0.7 K/mm3 (0.1-0.6); Monocytes Percent Auto 10.6 % (2.6-8.5); Neutrophils Absolute Auto 4.3 K/mm3 (1.3-6.7); Neutrophils Percent Auto 70.3 % (45.5-73.1); Platelet Count Result 214 k/mm3 (150-375); Red Blood Count 4.24 M/mm3 (4.6-6.20); Red Cell Distribution Width 13.9 % (11.5-14.5); White Blood Count 6.2 K/mm3 (4.5-10.0)
[2021-12-15 05:26] LABS: Alanine Aminotransferase 25 U/L (6-50); Albumin Level 4.1 g/dL (3.5-5.1); Alkaline Phosphatase 67 U/L (38-126); Anion Gap 9 mmol/L (8-16); Aspartate Amino Transferase 33 U/L (17-59); Bilirubin,Total 0.8 mg/dL (0.2-1.3); Blood Urea Nitrogen 10 mg/dL (9-20); Calcium 8.4 mg/dL (8.4-10.2); Carbon Dioxide 28 mmol/L (22-30); Chloride 98 mmol/L (98-107); Estimated CRCL calculation 89 ml/min; Estimated Glomerular Filt Rate > 60; Glucose 191 mg/dL (65-110); Magnesium 1.7 mg/dL (1.6-2.3); Potassium 4.8 mmol/L (3.4-5.0); Sodium 135 mmol/L (137-145)
[2021-12-15] MEDS: METOCLOPRAMIDE HCL 10 MG TABLET PO ×2 (05:51→17:22)
[2021-12-15 07:35] LABS: Glucose Point of Care 175 mg/dl (65-105)
[2021-12-15 08:00] VITALS: PULSE 75; RESP 18; O2SAT 98
[2021-12-15 08:46] VITALS: PULSE 75
[2021-12-15] MEDS: CHOLECALCIFEROL 1,000 UNITS TABLET 2000 UNITS PO (08:46)
[2021-12-15] MEDS: METOPROLOL SUCCINATE EXT REL 25 MG TABCR PO (08:46)
[2021-12-15] MEDS: ASPIRIN 81 MG ENTERIC TABLET PO (08:46)
[2021-12-15] MEDS: PANTOPRAZOLE SODIUM IV 40 MG VIAL IV PUSH (08:47)
--- NOTE | 2021-12-15 10:20 | PM.IMPN ---
Progress Note: A&P Assessment and Plan (1) Diabetic ulcer of toe associated with diabetes mellitus due to underlying condition: Code(s): E08.621 - Diabetes mellitus due to underlying condition with foot ulcer; L97.509 - Non-pressure chronic ulcer of other part of unspecified foot with unspecified severity Status: Acute Assessment and Plan: - Podiatry Dr. Beckwith consulted and appreciate recommendations. - Continue Vancomycin to be dosed by pharmacy and Primaxin IV. - Consult I&D Pharmacist and appreciate recommendations. - Monitor daily labs and VS. - Imaging is suspicious for Osteomyelitis. - Wound care evaluation pending. Dry dressing as needed for discharge. - Blood Cultures are pending. Not currently meeting sepsis criteria. (2) Diabetes: Qualifiers: Diabetes mellitus complication status: with neurologic complications Diabetes mellitus correction insulin use: with rodent exterminator use Diabetes mellitus type: type 2 Diabetes mellitus complication detail: with polyneuropathy Qualified Code(s): E11.42 - Type 2 diabetes mellitus with diabetic polyneuropathy; Z79.4 - FPC (current) use of insulin Code(s): E11.9 - Type 2 diabetes mellitus without complications Status: Chronic Assessment and Plan: - A1c 9.7%. He reports glucose levels ~200 mg/dL at home. - Continue home dose lantus 42 units daily, aspart moderate dose SSI with meals. - Hypoglycemic protocol - Glucose checks AC and HS - Tight glucose control (<180 mg/dL) for optimal wound healing. - Hold oral hypoglycemic agents. - Diabetic diet (3) PVD (peripheral vascular disease): Code(s): I73.9 - Peripheral vascular disease, unspecified Status: Chronic Assessment and Plan: - Known history of PAD s/p angioplasty LLE 2018. - Monitor pedal and posterior tibial pulses daily. - maintain tight glucose control to decrease chance of worsening wound. - check ABIs. - Continue aspirin 81 mg daily. (4) Gastroparesis due to DM: Code(s): E11.43 - Type 2 diabetes mellitus with diabetic autonomic (poly)neuropathy; K31.84 - Gastroparesis Status: Chronic Assessment and Plan: - Continue home medications. On Reglan BID. (5) CHF (congestive heart failure): Qualifiers: Heart failure chronicity: unspecified Heart failure type: unspecified Qualified Code(s): I50.9 - Heart failure, unspecified Code(s): I50.9 - Heart failure, unspecified Status: Chronic Assessment and Plan: - Known EF of 45% - Monitor for fluid status - Chronic. Not in acute exacerbation. (6) HTN (hypertension): Qualifiers: Hypertension type: essential hypertension Qualified Code(s): I10 - Essential (primary) hypertension Code(s): I10 - Essential (primary) hypertension Status: Chronic Assessment and Plan: - Currently 152/79, HR 75. - Continue Toprol XL 25 mg daily. - PRN BP meds ordered: Hydralazine 10 mg Q8 hrs prn with parameters. (7) Hypercholesterolemia: Code(s): E78.00 - Pure hypercholesterolemia, unspecified Status: Chronic Assessment and Plan: - Continue Lipitor and Zetia. (8) Gastroesophageal reflux disease: Qualifiers: Esophagitis presence: without esophagitis Qualified Code(s): K21.9 - Gastro-esophageal reflux disease without esophagitis Code(s): K21.9 - Gastro-esophageal reflux disease without esophagitis Status: Chronic Assessment and Plan: - On Protonix inpatient. (9) CAD (coronary artery disease): Qualifiers: Associated angina: without angina Coronary Disease-Associated Artery/Lesion type: nikolai artery [place] vs. transplanted heart: nikolai heart Qualified Code(s): I25.10 - Atherosclerotic heart disease of nikolai coronary artery without angina pectoris Code(s): I25.10 - Atherosclerotic heart disease of nikolai coronary artery without angina jaylinto
[2021-12-15 11:36] LABS: Glucose Point of Care 216 mg/dl (65-105)
[2021-12-15] MEDS: INSULIN ASPART (*BKC) 100 UNITS/ML SUB-Q (13:07)
--- NOTE | 2021-12-15 13:32 | PM.IMHP ---
H&P: HPI History of Present Illness Date/Time: 12/15/21 13:32 Chief Complaint: Mr. Lee is a 66 year old brittle diabetic with peripheral arterial disease and peripheral neuropathy along with several other comforbidities. He is an established patient of my podiatric practice. He has gone through several episodes of diabetic foot infections including an episode of osteomyelitis of his left distal 5th digit and partial fifth ray as well as a fifth metatarsal head resection. The patient relates that he started to develop a callus the tip of his left fourth toe and this past Sunday December 09, 2001 he started to develop pain to his left fourth toe, this is unusual for his since he is severely neuropathic. He relates that he did not develop drainage until this past Thursday, he started to apply wound care supplies at home, but unfortunately by Thursday his left fourth toe and distal forefoot was red, hot, swollen and more painful. No constitutional symptoms. He immiediately went to the ER, and was admitted for probable osteomyelitis. He has been receiving IV antibiotics since Thursday morning and states that the redness and swelling to the foot seems to be already improving. Review of Systems Review of Systems: see atached list [facility] Past Medical History Medical History Amputated toe Atrial fibrillation -post op CABG CAD (coronary artery disease) CHF (congestive heart failure) ef 45% Diabetes Diabetic peripheral neuropathy Gastroesophageal reflux disease Gastroparesis due to DM 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 History of gout in currently not on any medications no flare-ups History of pericarditis 09/2014 - pot CABG, s/p peicardial window HTN (hypertension) Hypercholesterolemia Osteoarthritis PVD (peripheral vascular disease) 12/2018 LT LEG OPENED ARTERY AT [facility] Vitamin D deficiency Surgical History Surgical History History of angioplasty of peripheral vessel 12/2018 - LLE History of foot surgery (~02/2021) 03/14: Fifth metatarsal head resection right foot. History of hydrocelectomy 08/2011 left Hx of coronary artery bypass graft 2014 4 VESSEL . PERICARDIAL EFFUSION- PERICARDIAL WINDOW Social History Social History Smoking packs per day: 1 Smoking cigarettes per day: 20.0 Years smoked: 30 Smoking pack-years: 30.00 Smoking status: Former smoker Tobacco type: cigarettes Smoking end date: 05/25/10 Alcohol intake: never Substance use: never Substance use type: does not use Additional living arrangements comments: Gender identity (if verbalized by the patient): Male Sexual Orientation (if Verbalized by the Patient): Straight or Heterosexual Spiritual care concerns: No Meds Home Medications and Allergies Home Medications Medication Instructions Recorded Confirmed Type acetaminophen 325 mg tablet 650 mg PO PRN PRN Pain 06/20/19 12/14/21 History (Tylenol) aspirin 81 mg tablet,delayed 81 mg PO DAILY 06/20/19 12/14/21 History release (Adult Low Dose Aspirin) cholecalciferol (vitamin D3) 50 2,000 unit PO DAILY 06/20/19 12/14/21 History mcg (2,000 unit) tablet docusate sodium 100 mg tablet 100 mg PO HS 06/20/19 12/14/21 History metoclopramide HCl 10 mg tablet 10 mg PO BID #180 tabs 09/12/19 12/14/21 Rx ezetimibe 10 mg tablet 10 mg PO HS 03/08/21 12/14/21 History atorvastatin 40 mg tablet 40 mg PO QHS #90 tabs 07/19/21 12/14/21 Rx metoprolol succinate 25 mg 25 mg PO DAILY #90 tabs 07/19/21 12/14/21 Rx tablet,extended release 24 hr pen needle, diabetic 31 gauge x #100 ea 07/19/21 12/14/21 Rx 5/16 (BD Ultra-Fine Short Pen Needle) sitagliptin 100 mg-metformin ER 1 tablet PO HS #30 tabs 07/19/21 12/14/21 Rx 1,000 mg t
[2021-12-15 14:00] VITALS: BP 152/73; PULSE 76; RESP 18; TEMP 36.6; O2SAT 98
[2021-12-15 14:30] LABS: Erythrocyte Sedimentation Rate 32 mm/hr (0-20)
[2021-12-15 16:27] LABS: Glucose Point of Care 194 mg/dl (65-105)
[2021-12-15 19:23] VITALS: BP 145/76; PULSE 88; RESP 18; TEMP 36.5; O2SAT 97
[2021-12-15 20:00] VITALS: PULSE 88; RESP 18; O2SAT 97
[2021-12-15] MEDS: ATORVASTATIN 40 MG TABLET PO (20:32)
[2021-12-15] MEDS: EZETIMIBE 10 MG TABLET PO (20:32)
[2021-12-15] MEDS: DOCUSATE SODIUM 100 MG CAPSULE PO (20:32)
[2021-12-15] MEDS: INSULIN GLARGINE (*BKC) 100 UNITS/ML 42 UNITS SUB-Q (20:33)
[2021-12-15 20:55] LABS: Glucose Point of Care 236 mg/dl (65-105)
[2021-12-15 22:48] LABS: Vancomycin Trough 12.6 ug/mL (10.0-20.0)
[2021-12-16 03:08] VITALS: BP 145/89; PULSE 78; RESP 17; TEMP 36.6; O2SAT 97
[2021-12-16] MEDS: METOCLOPRAMIDE HCL 10 MG TABLET PO ×2 (05:18→16:20)
[2021-12-16 06:08] LABS: Anion Gap 12 mmol/L (8-16); Blood Urea Nitrogen 10 mg/dL (9-20); Calcium 8.5 mg/dL (8.4-10.2); Carbon Dioxide 24 mmol/L (22-30); Chloride 100 mmol/L (98-107); Estimated CRCL calculation 99 ml/min; Estimated Glomerular Filt Rate > 60; Glucose 211 mg/dL (65-110); Potassium 4.4 mmol/L (3.4-5.0); Sodium 136 mmol/L (137-145)
--- NOTE | 2021-12-16 07:04 | PM.IMPN ---
Progress Note: A&P Assessment and Plan (1) Diabetic ulcer of toe associated with diabetes mellitus due to underlying condition: Code(s): E08.621 - Diabetes mellitus due to underlying condition with foot ulcer; L97.509 - Non-pressure chronic ulcer of other part of unspecified foot with unspecified severity Status: Acute Assessment and Plan: Podiatry Dr. Beckwith consulted and appreciate recommendations. Continue Vancomycin to be dosed by pharmacy and Primaxin IV Q6 hours. De-escalate per culture results. 12/16 bedside I&D planned today. Culture obtained and pending. Blood cultures obtained on admission with gram positive clusters in one of two bottles. Likely contaminant. Consult I&D Pharmacist and appreciate recommendations. Monitor daily labs and VS. Imaging is suspicious for Osteomyelitis. Wound care per Podiatry and wound care team. Check MRSA nasal swab for colonization. (2) Acute osteomyelitis of toe of left foot: Code(s): M86.172 - Other acute osteomyelitis, left ankle and foot Status: Acute Assessment and Plan: As above. Presumed plan for partial amputation, per Podiatry notes. Continue IV broad-spectrum antibiotics. (3) Diabetes: Qualifiers: Diabetes mellitus complication detail: with polyneuropathy Diabetes mellitus complication status: with neurologic complications Diabetes mellitus supervisor intermediates insulin use: with supervisor intermediates use Diabetes mellitus type: type 2 Qualified Code(s): E11.42 - Type 2 diabetes mellitus with diabetic polyneuropathy; Z79.4 - buttermilk drier operator (current) use of insulin Code(s): E11.9 - Type 2 diabetes mellitus without complications Status: Chronic Assessment and Plan: A1c 9.7%.Home glucose levels ~200 mg/dL. 12/16 increase lantus 45 units daily for glucose 186-234 mg/dL , aspart moderate dose SSI with meals. Hypoglycemic protocol Glucose checks AC and HS Tight glucose control (<180 mg/dL) for optimal wound healing. Hold glipizide and metformin. Resume sitagliptin if eating. Diabetic diet (4) PVD (peripheral vascular disease): Code(s): I73.9 - Peripheral vascular disease, unspecified Status: Chronic Assessment and Plan: Known history of PAD s/p angioplasty LLE 2019. Monitor pedal and posterior tibial pulses daily. maintain tight glucose control to decrease chance of worsening wound. MAYDA mild PAD: LLE 0.88, RLE 0.64 Continue aspirin 81 mg daily. (5) Gastroparesis due to DM: Code(s): E11.43 - Type 2 diabetes mellitus with diabetic autonomic (poly)neuropathy; K31.84 - Gastroparesis Status: Chronic Assessment and Plan: Continue Reglan BID. (6) CHF (congestive heart failure): Qualifiers: Heart failure chronicity: unspecified Heart failure type: unspecified Qualified Code(s): I50.9 - Heart failure, unspecified Code(s): I50.9 - Heart failure, unspecified Status: Chronic Assessment and Plan: Known EF of 45% Monitor for fluid status Chronic. Not in acute exacerbation. (7) HTN (hypertension): Qualifiers: Hypertension type: essential hypertension Qualified Code(s): I10 - Essential (primary) hypertension Code(s): I10 - Essential (primary) hypertension Status: Chronic Assessment and Plan: Currently 145/89, HR 78. Continue Toprol XL 25 mg daily. PRN BP meds ordered: Hydralazine 10 mg Q8 hrs prn with parameters. (8) Hypercholesterolemia: Code(s): E78.00 - Pure hypercholesterolemia, unspecified Status: Chronic Assessment and Plan: Continue Lipitor and Zetia. (9) Gastroesophageal reflux disease: Qualifiers: Esophagitis presence: without esophagitis Qualified Code(s): K21.9 - Gastro-esophageal reflux disease without esophagitis Code(s): K21.9 - Gastro-esophageal reflux disease without esophagitis Status: Chronic Assessment and Plan: On Protonix
--- NOTE | 2021-12-16 07:26 | PCWOUND ---
WOCN NOTE Received referral to assess patient left 4th toe. Patient already being followed by Dr. Beckwith, patients galvanometer assembler. Per Dr note from this weekend, plan is for 4th toe amputation. Wound care will not see this patient at this time.
[2021-12-16 08:05] LABS: Glucose Point of Care 186 mg/dl (65-105)
[2021-12-16 08:13] VITALS: PULSE 77
[2021-12-16] MEDS: METOPROLOL SUCCINATE EXT REL 25 MG TABCR PO (08:13)
[2021-12-16] MEDS: CHOLECALCIFEROL 1,000 UNITS TABLET 2000 UNITS PO (08:15)
[2021-12-16] MEDS: PANTOPRAZOLE SODIUM IV 40 MG VIAL IV PUSH (08:16)
[2021-12-16 09:15] VITALS: O2SAT 96
[2021-12-16 11:51] LABS: Glucose Point of Care 246 mg/dl (65-105)
[2021-12-16] MEDS: INSULIN ASPART (*BKC) 100 UNITS/ML SUB-Q ×2 (12:48→16:33)
[2021-12-16 13:00] LABS: Glucose Point of Care 234 mg/dl (65-105)
[2021-12-16 13:38] VITALS: BP 142/92; PULSE 81; RESP 14; TEMP 36.5; O2SAT 97
[2021-12-16] MEDS: metroNIDAZOLE 250 MG TABLET 500 MG PO ×2 (14:43→21:10)
[2021-12-16 16:30] LABS: Glucose Point of Care 285 mg/dl (65-105)
--- NOTE | 2021-12-16 17:16 | WPDPN ---
Progress Note: A&P Assessment and Plan (1) Acute osteomyelitis of toe of left foot: Code(s): M86.172 - Other acute osteomyelitis, left ankle and foot Status: Acute (2) Diabetic ulcer of toe associated with diabetes mellitus due to underlying condition: Code(s): E08.621 - Diabetes mellitus due to underlying condition with foot ulcer; L97.509 - Non-pressure chronic ulcer of other part of unspecified foot with unspecified severity Status: Acute (3) Hammertoe of left foot: Code(s): M20.42 - Other hammer toe(s) (acquired), left foot Status: Acute Plan 1. Diabetic ulceration to the fourth digit with osteomyelitis of the distal phalanx - I performed excisional debridement of the ulceration with a 15 blade extending down to the distal phalanx. Purulence expressed. Dressed with mepilex and Medipore tape per nursing. I will perform partial amputation of the left fourth digit on December 17, 2021 1pm per OR stuffed casing tier. 2. Claw toe deformities of 2nd though 4th digits left foot-I will perform percutaneous flexor tenotomies toes 2-4 left foot as an ancillary procedure to the above mentioned amputation -to reduce the contracture and diminish chance of ulcerations to the adjacent digits Subjective Date/time seen: 12/16/21 17:16 Seen at bedside resting comfortably. Relates some pain to the fourth toe, this is not typical for him. No FCNV. Exam Const: General: comfortable and no acute distress Extrem: Other: Dermatologic: Flucutance as well as erythema and edema to the distal fourth digit. Post debridement the patient has a full thickness ulcer with purulence noted extending to the distal phalanx. Musculoskeletal: Sagittal plane contracture present to the second through fourth digit of the left foot. Vascular: non palpable pedal pulses left foot, s/p bypass left lower extremity however. Neurologic: devoid of protective sensation to both feet Objective Data Vital Signs Vital Signs: Vital Signs - 24 hr 12/15/21 19:23 12/15/21 20:00 12/16/21 03:08 Temperature 36.5 C 36.6 C Pulse Rate 88 88 78 Respiratory Rate 18 18 17 Blood Pressure 145/76 H 145/89 H Pulse Oximetry 97 97 97 Oxygen Delivery Room Air 12/16/21 08:13 12/16/21 09:15 12/16/21 08:20 Temperature Pulse Rate 77 Respiratory Rate Blood Pressure Pulse Oximetry 96 Oxygen Delivery Room Air Room Air 12/16/21 13:38 Temperature 36.5 C Pulse Rate 81 Respiratory Rate 14 Blood Pressure 142/92 H Pulse Oximetry 97 Oxygen Delivery Intake/Output Intake/Output: Intake & Output 12/13/21 12/14/21 12/15/21 12/16/21 23:59 23:59 23:59 23:59 Intake Total 1040 2550 1880 Output Total 400 1750 1200 Balance 640 800 680 Meds/Results Medications: Active Medications Generic Name Dose Route Start Last Admin Trade Name Freq PRN Reason Stop Dose Admin Acetaminophen 650 mg 12/14/21 20:34 Acetaminophen 325 Mg Tablet PO PRN PRN Pain Aspirin 81 mg 12/15/21 09:00 12/15/21 08:46 Aspirin 81 Mg Enteric Tablet PO 81 mg DAILY SATHYA Administration Atorvastatin Calcium 40 mg 12/14/21 21:00 12/15/21 20:32 Atorvastatin 40 Mg Tablet PO 40 mg QHS SATHYA Administration Dextrose 12.5 gm 12/14/21 13:40 Dextrose 50% 25 Gm/50 Ml Syringe IV PUSH PRN PRN Hypoglycemia Protocol Docusate Sodium 100 mg 12/14/21 21:00 12/15/21 20:32 Docusate Sodium 100 Mg Capsule PO 100 mg HS SATHYA Administration Ezetimibe 10 mg 12/14/21 21:00 12/15/21 20:32 Ezetimibe 10 Mg Tablet PO 10 mg HS SATHYA Administration Glucagon 1 mg 12/14/21 13:40 Glucagon For Inj 1 Mg Vial IM PRN PRN Hypoglycemia Protocol Glucose 15 gm 12/14/21 13:40 Glucose Oral Gel 15 Gm Of Glucse In 37.5 Gm Tube PO PRN PRN Hypoglycemia Protocol Heparin Sodium (Porcine) 5,000 units 12/15/21 22:00 12/16/21 04:42 Heparin Sodium 5,000 Units/Ml Vial SUB-Q Not Given Q8HR
[2021-12-16 19:28] VITALS: BP 136/70; PULSE 81; RESP 20; TEMP 36.1; O2SAT 97
[2021-12-16 20:24] LABS: Glucose Point of Care 267 mg/dl (65-105)
[2021-12-16] MEDS: DOCUSATE SODIUM 100 MG CAPSULE PO (20:48)
[2021-12-16] MEDS: EZETIMIBE 10 MG TABLET PO (20:48)
[2021-12-16] MEDS: ATORVASTATIN 40 MG TABLET PO (20:48)
[2021-12-16] MEDS: INSULIN GLARGINE (*BKC) 100 UNITS/ML 45 UNITS SUB-Q (20:48)
[2021-12-17] VITALS (15 sets, daily range): BP systolic 136–159; BP diastolic 67–90; PULSE 68–97; RESP 10–22; TEMP 36.2–37.1; O2SAT 94–100
[2021-12-17] MEDS: metroNIDAZOLE 250 MG TABLET 500 MG PO ×3 (05:03→20:32)
[2021-12-17] MEDS: METOCLOPRAMIDE HCL 10 MG TABLET PO ×2 (05:03→16:07)
[2021-12-17 05:30] LABS: Basophils Percent Auto 0.1 % (0.2-1.2); Eosinophils Absolute Auto 0.2 K/mm3 (0-0.3); Eosinophils Percent Auto 3.2 % (0-4.4); Hemoglobin 13.7 g/dL (14.0-18.0); Immature Granulocyte Absolute 0.03 K/mm3 (0.00-0.031); Immature Granulocyte Percent A 0.4 % (0-0.5); Lymphocytes Percent Auto 13.3 % (18.3-44.2); Mean Corpuscular HGB Conc 32.6 g/dl (32-36); Mean Corpuscular Hemoglobin 30.6 pg (26-34); Mean Corpuscular Volume 93.8 fl (80-100); Mean Platelet Volume 10.4 fl (7.4-10.4); Monocytes Absolute Auto 0.5 K/mm3 (0.1-0.6); Monocytes Percent Auto 6.8 % (2.6-8.5); Neutrophils Absolute Auto 5.2 K/mm3 (1.3-6.7); Neutrophils Percent Auto 76.2 % (45.5-73.1); Platelet Count Result 233 k/mm3 (150-375); Red Blood Count 4.48 M/mm3 (4.6-6.20); Red Cell Distribution Width 13.7 % (11.5-14.5); White Blood Count 6.8 K/mm3 (4.5-10.0)
[2021-12-17 05:39] LABS: Anion Gap 11 mmol/L (8-16); Blood Urea Nitrogen 12 mg/dL (9-20); Calcium 8.7 mg/dL (8.4-10.2); Carbon Dioxide 28 mmol/L (22-30); Chloride 98 mmol/L (98-107); Estimated CRCL calculation 80 ml/min; Estimated Glomerular Filt Rate > 60; Glucose 220 mg/dL (65-110); Potassium 4.1 mmol/L (3.4-5.0); Sodium 137 mmol/L (137-145)
[2021-12-17 07:57] LABS: Glucose Point of Care 226 mg/dl (65-105)
[2021-12-17] MEDS: PANTOPRAZOLE SODIUM IV 40 MG VIAL IV PUSH (08:14)
[2021-12-17] MEDS: METOPROLOL SUCCINATE EXT REL 25 MG TABCR PO (08:14)
[2021-12-17] MEDS: CHOLECALCIFEROL 1,000 UNITS TABLET 2000 UNITS PO (08:16)
--- NOTE | 2021-12-17 08:39 | PM.IMPN ---
Progress Note: A&P Assessment and Plan (1) Diabetic ulcer of toe associated with diabetes mellitus due to underlying condition: Code(s): E08.621 - Diabetes mellitus due to underlying condition with foot ulcer; L97.509 - Non-pressure chronic ulcer of other part of unspecified foot with unspecified severity Status: Acute Assessment and Plan: Podiatry Dr. Beckwith consulted and appreciate recommendations. Wound care per Podiatry and wound care team. 12/14/21 Imaging is suspicious for Osteomyelitis. Continue Vancomycin to be dosed by pharmacy. Primaxin IV Q6 hours given 12/14-12/16/21, then changed to Cefepime 2 grams Q12 with PO metronidazole 500 mg Q8 hours. Antibiotics discussed with I&D Pharmacist. De-escalate per culture results. 12/15/21 Blood cultures obtained on admission with gram positive clusters in one of two bottles. Likely contaminant. 12/16/21 - left 4th digit ulcer debrided at bedside. Culture sent and pending. Check MRSA nasal swab for colonization. 12/17/21 - partial amputation with tendon release planned this afternoon. (2) Acute osteomyelitis of toe of left foot: Code(s): M86.172 - Other acute osteomyelitis, left ankle and foot Status: Acute Assessment and Plan: As above. Plan for partial amputation 12/17/21 Continue IV broad-spectrum antibiotics as above. He will likely need 4-6 weeks IV abx. (3) Diabetes: Qualifiers: Diabetes mellitus complication detail: with polyneuropathy Diabetes mellitus complication status: with neurologic complications Diabetes mellitus mcfp insulin use: with mcfp use Diabetes mellitus type: type 2 Qualified Code(s): E11.42 - Type 2 diabetes mellitus with diabetic polyneuropathy; Z79.4 - terminal clerk (current) use of insulin Code(s): E11.9 - Type 2 diabetes mellitus without complications Status: Chronic Assessment and Plan: A1c 9.7% on admission. Home glucose levels ~200 mg/dL. Glucose checks AC and HS. Hypoglycemic protocol Tight glucose control (<180 mg/dL) for optimal wound healing. Diabetic diet 12/15/21 was treated with Lantus 42 units home does. Trulicity not on formulary. janumet & glipizide held. 12/16/21 increased lantus 45 units daily for glucose 186-234 mg/dL , aspart moderate dose SSI with meals. 12/17/21 Patient NPO for surgery. Hold aspart due to 45 units lantus given last night. Monitor glucose. Resume sitagliptin tomorrow am if eating. (4) PVD (peripheral vascular disease): Code(s): I73.9 - Peripheral vascular disease, unspecified Status: Chronic Assessment and Plan: Known history of PAD s/p angioplasty LLE 2019. Monitor pedal and posterior tibial pulses daily. maintain tight glucose control to decrease chance of worsening wound. 12/15/21 MAYDA mild PAD: LLE 0.88, RLE 0.64 Resume aspirin 81 mg daily postop. (5) Gastroparesis due to DM: Code(s): E11.43 - Type 2 diabetes mellitus with diabetic autonomic (poly)neuropathy; K31.84 - Gastroparesis Status: Chronic Assessment and Plan: Continue Reglan BID. (6) CHF (congestive heart failure): Qualifiers: Heart failure chronicity: unspecified Heart failure type: unspecified Qualified Code(s): I50.9 - Heart failure, unspecified Code(s): I50.9 - Heart failure, unspecified Status: Chronic Assessment and Plan: Known EF of 45% Monitor for fluid status Chronic. Not in acute exacerbation. (7) HTN (hypertension): Qualifiers: Hypertension type: essential hypertension Qualified Code(s): I10 - Essential (primary) hypertension Code(s): I10 - Essential (primary) hypertension Status: Chronic Assessment and Plan: Currently 145/89, HR 78. Continue Toprol XL 25 mg daily. PRN BP meds ordered: Hydralazine 10 mg Q8 hrs prn with parameters. (8) Hypercholesterolemia: Code(s): E78.00 - Pure hypercholesterolemia, unspecified Stat
[2021-12-17 10:04] LABS: Vancomycin Trough 18.1 ug/mL (10.0-20.0)
[2021-12-17 11:26] LABS: Glucose Point of Care 241 mg/dl (65-105)
--- NOTE | 2021-12-17 12:08 | WPDANESEPPF ---
Anes - Initial Pre Proc Eval Procedure: Operation Date: 12/17/21 13:00 Proposed Procedures p Partial Fourth Digit Amputation Left Foot, Flexor Tenotomy Second Through Fourth Digits Left Foot - Yehuda Beckwith JR, MD Date/Time: 12/17/21 12:08 Surgeon: Summer Uribe DO Pre Op Diagnosis: Left toe osteomyelitis/diabetic toe ulcer Patient Data Age: 66 Gender: M Height: 1.75 m Weight: 114.9 kg Last Vital Signs Temp 36.6 C 12/17/21 12:03 Pulse 70 12/17/21 12:03 Resp 16 12/17/21 12:03 BP 146/75 H 12/17/21 12:03 Pulse Ox 99 12/17/21 12:03 O2 Del Method Room Air 12/17/21 12:03 Allergies Allergy/AdvReac Type Severity Reaction Status Date / Time No Known Allergies Allergy Verified 09/02/21 10:29 Home Medications Medication Instructions Recorded Confirmed Type acetaminophen 325 mg tablet 650 mg PO PRN PRN Pain 06/20/19 12/14/21 History (Tylenol) aspirin 81 mg tablet,delayed 81 mg PO DAILY 06/20/19 12/14/21 History release (Adult Low Dose Aspirin) cholecalciferol (vitamin D3) 50 2,000 unit PO DAILY 06/20/19 12/14/21 History mcg (2,000 unit) tablet docusate sodium 100 mg tablet 100 mg PO HS 06/20/19 12/14/21 History metoclopramide HCl 10 mg tablet 10 mg PO BID #180 tabs 09/12/19 12/14/21 Rx ezetimibe 10 mg tablet 10 mg PO HS 03/08/21 12/14/21 History atorvastatin 40 mg tablet 40 mg PO QHS #90 tabs 07/19/21 12/14/21 Rx metoprolol succinate 25 mg 25 mg PO DAILY #90 tabs 07/19/21 12/14/21 Rx tablet,extended release 24 hr pen needle, diabetic 31 gauge x #100 ea 07/19/21 12/14/21 Rx 5/16 (BD Ultra-Fine Short Pen Needle) sitagliptin 100 mg-metformin ER 1 tablet PO HS #30 tabs 07/19/21 12/14/21 Rx 1,000 mg tablet,extended cjobquo32m mp (Janumet XR) insulin glargine 100 unit/mL (3 42 unit subcut DAILY 09/02/21 12/14/21 History mL) subcutaneous pen (Lantus Solostar U-100 Insulin) glipizide 10 mg tablet 10 mg PO BID #180 tabs 12/02/21 12/14/21 Rx Laboratory Tests 12/16/21 12/16/21 12/16/21 12:47 16:26 19:44 WBC RBC Hgb Hct MCV MCH MCHC RDW Plt Count MPV Immature Gran % (Auto) Neut % (Auto) Lymph % (Auto) [place] % (Auto) Eos % (Auto) Baso % (Auto) Lymph # (Auto) [place] # (Auto) Eos # (Auto) Baso # (Auto) Abs Immat Gran (auto) Absolute Neuts (auto) Absolute Nucleated RBC Nucleated RBC % Sodium Potassium Chloride Carbon Dioxide Anion Gap BUN Creatinine Estim Creat Clear Calc Estimated GFR Glucose POC Capillary Glucose 234 mg/dl H mg/dl 285 mg/dl H mg/dl 267 mg/dl H mg/dl (65-105) (65-105) (65-105) Calcium Vancomycin Trough 12/17/21 12/17/21 12/17/21 04:38 04:38 07:26 WBC 6.8 K/mm3 K/mm3 (4.5-10.0) RBC 4.48 M/mm3 L M/mm3 (4.6-6.20) Hgb 13.7 g/dL L g/dL (14.0-18.0) Hct 42.0 % % (42.0-52.0) MCV 93.8 fl fl (80-100) MCH 30.6 pg pg (26-34) MCHC 32.6 g/dl g/dl (32-36) RDW 13.7 % % (11.5-14.5) Plt Count 233 k/mm3 k/mm3 (150-375) MPV 10.4 fl fl (7.4-10.4) Immature Gran % (Auto) 0.4 % % (0-0.5) Neut % (Auto) 76.2 % H % (45.5-73.1) Lymph % (Auto) 13.3 % L % (18.3-44.2) [place] % (Auto) 6.8 % % (2.6-8.5) Eos % (Auto) 3.2 % % (0-4.4) Baso % (Auto) 0.1 % L % (0.2-1.2) Lymph # (Auto) 0.90 K/mm3 K/mm3 (0.9-3.2) [place] # (Auto) 0.5 K/mm3 K/mm3 (0.1-0.6) Eos # (Auto) 0.2 K/mm3 K/mm3 (0-0.3) Baso
--- NOTE | 2021-12-17 12:09 | WPDHPUPDATE1 ---
History and Physical Update Update Date/Time: 12/17/21 12:09 History and Physical has been reviewed, including an updated exam of the patient. There are NO changes in the patient's condition. Risks, benefits, and alternatives have been discussed and questions answered. Patient agrees to proceed with procedure. Consented for: 1. Partial fourth digit amputation left foot 2. Flexor tenotomy of the 2nd through 4th digit left foot
--- NOTE | 2021-12-17 12:14 | PC.NURSE ---
Patient to OR per bed at 1145.
[2021-12-17] MEDS: LACTATED RINGERS 1,000 ML 30 ML IV CONT (12:38)
[2021-12-17] MEDS: ceFAZolin 2 GM/D5W 50 ML 2 GM/50 ML BAG IVPB (13:09)
[2021-12-17] MEDS: LIDOCAINE HCL 2% LOCAL INJ 20 ML VIAL 10 ML INFILTRATE (13:16)
[2021-12-17 14:13] LABS: Glucose Point of Care 253 mg/dl (65-105)
--- NOTE | 2021-12-17 15:01 | PM.OP ---
Procedure Note - Brief Procedure Note - Brief Date of procedure: 12/17/21 Pre-op diagnosis: Left toe osteomyelitis/diabetic toe ulcer 1. Left fourth digit diabetic ulcer with osteomyelitis 2. Hammertoe deformities second through fourth digits left foot Post-op diagnosis: Same Procedure performed: 1. Partial fourth digit amputation left foot 2. Flexor tenotomy of the 2nd though fourth digit of the left foot Surgeon: Yehuda Beckwith JR, MD
--- NOTE | 2021-12-17 15:10 | PC.NURSE ---
Patient returned from OR per bed 1510.
[2021-12-17] MEDS: glipiZIDE 5 MG TABLET 10 MG PO (16:07)
[2021-12-17 16:11] LABS: CRP 1.2 mg/dL (<1.0)
[2021-12-17 16:25] LABS: Erythrocyte Sedimentation Rate 35 mm/hr (0-20)
[2021-12-17 16:49] LABS: Glucose Point of Care 232 mg/dl (65-105)
[2021-12-17] MEDS: INSULIN ASPART (*BKC) 100 UNITS/ML SUB-Q (16:53)
[2021-12-17] MEDS: EZETIMIBE 10 MG TABLET PO (20:32)
[2021-12-17] MEDS: ATORVASTATIN 40 MG TABLET PO (20:32)
[2021-12-17] MEDS: DOCUSATE SODIUM 100 MG CAPSULE PO (20:32)
[2021-12-17] MEDS: metFORMIN HCL XR 500 MG TAB.SR.24H 1000 MG PO (20:32)
[2021-12-17] MEDS: INSULIN GLARGINE (*BKC) 100 UNITS/ML 45 UNITS SUB-Q (20:34)
[2021-12-17 21:00] LABS: Glucose Point of Care 183 mg/dl (65-105)
[2021-12-18 05:04] LABS: Hematocrit 39.7 % (42.0-52.0); Hemoglobin 12.9 g/dL (14.0-18.0); Mean Corpuscular HGB Conc 32.5 g/dl (32-36); Mean Corpuscular Hemoglobin 30.3 pg (26-34); Mean Corpuscular Volume 93.2 fl (80-100); Mean Platelet Volume 10.3 fl (7.4-10.4); Platelet Count Result 229 k/mm3 (150-375); Red Blood Count 4.26 M/mm3 (4.6-6.20); Red Cell Distribution Width 13.8 % (11.5-14.5); White Blood Count 7.1 K/mm3 (4.5-10.0)
[2021-12-18 05:07] VITALS: BP 148/74; PULSE 76; RESP 20; TEMP 35.9; O2SAT 100
[2021-12-18 05:19] LABS: Anion Gap 10 mmol/L (8-16); Blood Urea Nitrogen 11 mg/dL (9-20); Calcium 8.6 mg/dL (8.4-10.2); Carbon Dioxide 28 mmol/L (22-30); Chloride 98 mmol/L (98-107); Estimated CRCL calculation 80 ml/min; Estimated Glomerular Filt Rate > 60; Glucose 167 mg/dL (65-110); Potassium 4.3 mmol/L (3.4-5.0); Sodium 136 mmol/L (137-145)
[2021-12-18] MEDS: METOCLOPRAMIDE HCL 10 MG TABLET PO ×2 (06:01→17:24)
[2021-12-18] MEDS: metroNIDAZOLE 250 MG TABLET 500 MG PO ×3 (06:01→21:08)
--- NOTE | 2021-12-18 07:31 | PM.IMPN ---
Progress Note: A&P Assessment and Plan (1) Diabetic ulcer of toe associated with diabetes mellitus due to underlying condition: Code(s): E08.621 - Diabetes mellitus due to underlying condition with foot ulcer; L97.509 - Non-pressure chronic ulcer of other part of unspecified foot with unspecified severity Status: Acute Assessment and Plan: Podiatry Dr. Beckwith consulted and appreciate recommendations. Wound care per Podiatry and wound care team. 12/14/21 Imaging is suspicious for Osteomyelitis. Continue Vancomycin to be dosed by pharmacy. Primaxin IV Q6 hours given 12/14-12/16/21, then changed to Cefepime 2 grams Q12 with PO metronidazole 500 mg Q8 hours. Antibiotics discussed with I&D Pharmacist. De-escalate per culture results. 12/15/21 Blood cultures obtained on admission with gram positive clusters in one of two bottles. Likely contaminant. 12/16/21 - left 4th digit ulcer debrided at bedside. Culture sent and pending. Check MRSA nasal swab for colonization. 12/17/21 - partial amputation with tendon release planned this afternoon. 12/18/2021-patient remains pain-free currently. Staphylococcus aureus growing well wound culture and blood culture, possible contaminant in blood culture. Patient remains on vancomycin and cefepime as well as Flagyl. Consider transitioning to doxycycline and Flagyl pending sensitivity reports. (2) Acute osteomyelitis of toe of left foot: Code(s): M86.172 - Other acute osteomyelitis, left ankle and foot Status: Acute Assessment and Plan: As above. Plan for partial amputation 12/17/21 Continue IV broad-spectrum antibiotics as above. He will likely need 4-6 weeks IV abx. As above (3) Diabetes: Qualifiers: Diabetes mellitus complication detail: with polyneuropathy Diabetes mellitus complication status: with neurologic complications Diabetes mellitus prison insulin use: with vehicle assembly inspector use Diabetes mellitus type: type 2 Qualified Code(s): E11.42 - Type 2 diabetes mellitus with diabetic polyneuropathy; Z79.4 - half-way (current) use of insulin Code(s): E11.9 - Type 2 diabetes mellitus without complications Status: Chronic Assessment and Plan: A1c 9.7% on admission. Home glucose levels ~200 mg/dL. Glucose checks AC and HS. Hypoglycemic protocol Tight glucose control (<180 mg/dL) for optimal wound healing. Diabetic diet 12/15/21 was treated with Lantus 42 units home does. Trulicity not on formulary. janumet & glipizide held. 12/16/21 increased lantus 45 units daily for glucose 186-234 mg/dL , aspart moderate dose SSI with meals. 12/17/21 Patient NPO for surgery. Hold aspart due to 45 units lantus given last night. Monitor glucose. Resume sitagliptin tomorrow am if eating. 12/18/2021 patient has been able to eat a regular diet therefore his insulin was resumed as well as his oral medications. Continue current management (4) PVD (peripheral vascular disease): Code(s): I73.9 - Peripheral vascular disease, unspecified Status: Chronic Assessment and Plan: Known history of PAD s/p angioplasty LLE 2019. Monitor pedal and posterior tibial pulses daily. maintain tight glucose control to decrease chance of worsening wound. 12/15/21 MAYDA mild PAD: LLE 0.88, RLE 0.64 Resume aspirin 81 mg daily postop. (5) Gastroparesis due to DM: Code(s): E11.43 - Type 2 diabetes mellitus with diabetic autonomic (poly)neuropathy; K31.84 - Gastroparesis Status: Chronic Assessment and Plan: Continue Reglan BID. (6) CHF (congestive heart failure): Qualifiers: Heart failure chronicity: unspecified Heart failure type: unspecified Qualified Code(s): I50.9 - Heart failure, unspecified Code(s): I50.9 - Heart failure, unspecified Status: Chronic Assessment and Plan: Known EF of 45% Monitor for fluid status Chronic. Not in acute exacerbation. (7) HTN (hypertension): Qualifiers:
--- NOTE | 2021-12-18 08:10 | W.PM.PROC2 ---
Procedure Note - Detailed Date of Procedure 12/18/21 Pre-op Diagnosis 1. Left fourth digit diabetic ulcer with osteomyelitis 2. Hammertoe deformities second through fourth digits left foot Post-op Diagnosis Same Procedure Performed 1. Partial fourth digit amputation left foot 2. Flexor tenotomy of the 2nd though fourth digit of the left foot Surgeon Yehuda Beckwith JR, DPM Indications Ulcer probing to bone to the left fourth digit Contracted 2nd though 4th digits of the left foot Description of Procedure Under mild sedation, the patient was brought to the operating room, placed on the operating table in the supine position. A pneumatic ankle tourniquet was placed about the patient's ankle. Following general anesthesia, I performed a proximal second though fourth metatarsal Fuller Block. The foot was then scrubbed, prepped, and draped in the usual aseptic manner. An Esmarch bandage was then used to examine the patient's foot and pneumatic ankle tourniquet was then inflated. Surgery began in the following manner. Attention was directed to the dorsal distal aspect of the fourth digit at the distal phalangeal joint region where a modified fishmouth incision was made about the joint . The incision was continued deep down through the subcutaneous tissues using sharp and blunt dissection. All bleeders were cauterized as necessary. A full-length periosteal and capsular incision was made overlying the fourth digit interphalangeal joint disarticulating the digit. The distal digit was removed from the operative site and placed on the back table and later sent for gross and histopathology. The remaining tissue was healthy and bleeding. The cartilage to the head of the middle phalanx was normal with no signs of infection. The wound site was then flushed with copious amounts of sterile saline. Next, the skin was reapproximated and coapted utilizing 4-0 Prolene in simple interrupted suture fashion technique. I made a small incision with a 6100 blade to the plantar aspect of the proximal interphalangeal joint of 2nd though fourth digits and released the long flexor tendon and reapproximated the stab incision with 4-0 Prolene. The digit contractures were reduced. Upon completion of the procedure, the incision was dressed with Adaptic, 4 x 4's, Kerlix, and Coban. The pneumatic ankle tourniquet was then deflated and a prompt hyperemic response noted to all digits of the foot. A surgical shoe was then applied. The patient did very well with the procedure and the anesthesia. The patient was transferred PACU and then the [facility] surg floor, with vital signs stable and vascular status intact to all remaining toes of the affected foot. Following a period of postoperative monitoring, the patient will be discharged home on the following written and oral postoperative instructions: 1. Keep the dressing clean, dry, and intact. Use a cast protector bag with showers. 2. The patient should use a surgical shoe for ambulation postoperatively. 3. The patient should be on bedrest with bathroom privileges and elevate the affected foot when at rest. 4. The patient to contact Dr. Beckwith for all postop care and if any problems arise. 5. Prescriptions were written for Percocet 5/325 dispensed 40 to be taken 1 p.o. q.4 to 6 hours as needed for severe pain. Urine Output 300 Pathology Yes Complications No immediate complications Condition Stable Disposition Floor
[2021-12-18 08:11] LABS: Glucose Point of Care 179 mg/dl (65-105)
[2021-12-18] MEDS: CHOLECALCIFEROL 1,000 UNITS TABLET 2000 UNITS PO (08:19)
[2021-12-18] MEDS: glipiZIDE 5 MG TABLET 10 MG PO ×2 (08:20→17:23)
[2021-12-18] MEDS: METOPROLOL SUCCINATE EXT REL 25 MG TABCR PO (08:20)
[2021-12-18] MEDS: PANTOPRAZOLE SODIUM IV 40 MG VIAL IV PUSH (08:20)
--- NOTE | 2021-12-18 09:17 | WPDANESPN ---
Anes - Prog Note Post-Op Date/Time: 12/18/21 09:17 Vital Signs: Last Vital Signs Temp 35.9 C L 12/18/21 05:07 Pulse 76 12/18/21 05:07 Resp 20 12/18/21 05:07 BP 148/74 H 12/18/21 05:07 Pulse Ox 100 12/18/21 05:07 O2 Del Method Room Air 12/17/21 15:21 O2 Flow Rate 8 12/17/21 13:55 Pain Score (VAS): 0 I/O: Intake & Output 12/17/21 12/18/21 12/18/21 23:59 07:59 15:59 Intake Total 50 840 720 Output Total 1075 300 300 Balance -1025 540 420 Laboratory Tests 12/18/21 04:36 12/18/21 04:36 12/17/21 12/17/21 12/17/21 09:40 11:05 14:09 WBC RBC Hgb Hct MCV MCH MCHC RDW Plt Count MPV ESR Sodium Potassium Chloride Carbon Dioxide Anion Gap BUN Creatinine Estim Creat Clear Calc Estimated GFR Glucose POC Capillary Glucose 241 H 253 H Calcium C-Reactive Protein Vancomycin Trough 18.1 12/17/21 12/17/21 12/17/21 15:36 15:36 16:43 WBC RBC Hgb Hct MCV MCH MCHC RDW Plt Count MPV ESR 35 H Sodium Potassium Chloride Carbon Dioxide Anion Gap BUN Creatinine Estim Creat Clear Calc Estimated GFR Glucose POC Capillary Glucose 232 H Calcium C-Reactive Protein 1.2 H Vancomycin Trough 12/17/21 12/18/21 12/18/21 20:31 04:36 04:36 WBC 7.1 RBC 4.26 L Hgb 12.9 L Hct 39.7 L MCV 93.2 MCH 30.3 MCHC 32.5 RDW 13.8 Plt Count 229 MPV 10.3 ESR Sodium 136 L Potassium 4.3 Chloride 98 Carbon Dioxide 28 Anion Gap 10 BUN 11 Creatinine 1.00 Estim Creat Clear Calc 80 Estimated GFR > 60 Glucose 167 H POC Capillary Glucose 183 H Calcium 8.6 C-Reactive Protein Vancomycin Trough 12/18/21 07:45 WBC RBC Hgb Hct MCV MCH MCHC RDW Plt Count MPV ESR Sodium Potassium Chloride Carbon Dioxide Anion Gap BUN Creatinine Estim Creat Clear Calc Estimated GFR Glucose POC Capillary Glucose 179 H Calcium C-Reactive Protein Vancomycin Trough Microbiology 12/16/21 13:48 Nasopharynx MRSA Culture - Final 12/16/21 12:11 Foot Left Wound Culture - Preliminary Staphylococcus aureus 12/14/21 10:54 Blood Blood Culture - Final Staphylococcus hominis Patient Feedback: Patient satisfied with anesthetic care.
[2021-12-18 10:25] VITALS: BP 138/78; PULSE 73; RESP 16; TEMP 36.9; O2SAT 94
[2021-12-18] MEDS: ASPIRIN 81 MG ENTERIC TABLET PO (11:17)
[2021-12-18 11:24] LABS: Glucose Point of Care 273 mg/dl (65-105)
[2021-12-18] MEDS: INSULIN ASPART (*BKC) 100 UNITS/ML SUB-Q ×2 (11:46→17:23)
[2021-12-18] MEDS: HEPARIN SODIUM 5,000 UNITS/ML VIAL 5000 UNITS SUB-Q ×2 (14:01→21:08)
--- NOTE | 2021-12-18 14:21 | WPDPN ---
Progress Note: A&P Assessment and Plan (1) Hammertoe of left foot: Code(s): M20.42 - Other hammer toe(s) (acquired), left foot Status: Acute Assessment and Plan: s/p flexor tenotomy healing well no SOI. Continue with surgical shoe. (2) Acute osteomyelitis of toe of left foot: Code(s): M86.172 - Other acute osteomyelitis, left ankle and foot Status: Acute Assessment and Plan: s/p amputation of distal phalanx. see wound swab results for micro C&S, discharge on abx per ID per pathology and C&S results. Changed dressing. the patient will keep the dressing clean dry and intact. minimal ambulation with surgical shoe. Follow up in my office in one week, for wound management results. (3) Diabetic ulcer of toe associated with diabetes mellitus due to underlying condition: Code(s): E08.621 - Diabetes mellitus due to underlying condition with foot ulcer; L97.509 - Non-pressure chronic ulcer of other part of unspecified foot with unspecified severity Status: Acute Subjective Date/time seen: 12/18/21 14:21 Patient seen at bedside resting comfortably. No F/C/N/V/SOB/calf pain left Exam Extrem: Other: Incision site to the left fourth digit well coapted to signs of infection. CFT is immediate to the stump of the partially amputated fourth digit. Remaining digits of the left foot are now rectus s/p release of the flexor tendons. Objective Data Vital Signs Vital Signs: Vital Signs - 24 hr 12/17/21 14:25 12/17/21 14:40 12/17/21 14:55 Temperature Pulse Rate 69 68 68 Respiratory Rate 20 22 H 18 Blood Pressure 159/75 H 155/72 H 154/80 H Pulse Oximetry 98 96 95 Oxygen Delivery Room Air Room Air Room Air 12/17/21 15:21 12/17/21 15:20 12/17/21 15:35 Temperature 37.1 C 36.9 C Pulse Rate 68 68 Respiratory Rate 16 14 Blood Pressure 149/82 H 151/84 H Pulse Oximetry 94 98 Oxygen Delivery Room Air 12/17/21 16:05 12/17/21 17:05 12/17/21 19:47 Temperature 36.8 C 36.6 C 36.2 C L Pulse Rate 68 78 78 Respiratory Rate 16 16 20 Blood Pressure 145/79 H 136/90 146/67 H Pulse Oximetry 94 97 98 Oxygen Delivery 12/17/21 23:56 12/18/21 05:07 12/18/21 10:25 Temperature 36.2 C L 35.9 C L 36.9 C Pulse Rate 74 76 73 Respiratory Rate 20 20 16 Blood Pressure 152/68 H 148/74 H 138/78 Pulse Oximetry 97 100 94 Oxygen Delivery Intake/Output Intake/Output: Intake & Output 12/15/21 12/16/21 12/17/21 12/18/21 23:59 23:59 23:59 23:59 Intake Total 2550 2230 1890 1750 Output Total 1750 2100 1675 600 Balance 800 475 341 0307 Meds/Results Medications: Active Medications Generic Name Dose Route Start Last Admin Trade Name Freq PRN Reason Stop Dose Admin Acetaminophen 650 mg 12/14/21 20:34 Acetaminophen 325 Mg Tablet PO PRN PRN Pain Aspirin 81 mg 12/15/21 09:00 12/18/21 11:17 Aspirin 81 Mg Enteric Tablet PO 81 mg DAILY SATHYA Administration Atorvastatin Calcium 40 mg 12/14/21 21:00 12/17/21 20:32 Atorvastatin 40 Mg Tablet PO 40 mg QHS SATHYA Administration Dextrose 12.5 gm 12/14/21 13:40 Dextrose 50% 25 Gm/50 Ml Syringe IV PUSH PRN PRN Hypoglycemia Protocol Docusate Sodium 100 mg 12/14/21 21:00 12/17/21 20:32 Docusate Sodium 100 Mg Capsule PO 100 mg HS SATHYA Administration Ezetimibe 10 mg 12/14/21 21:00 12/17/21 20:32 Ezetimibe 10 Mg Tablet PO 10 mg HS SATHYA Administration Fentanyl Citrate 25 mcg 12/17/21 12:10 Fentanyl Citrate Inj (*Crx) 100 Mcg/2 Ml Vial IV PUSH Q2M PRN Pain Glipizide 10 mg 12/17/21 17:00 12/18/21 08:20 Glipizide 5 Mg Tablet PO 10 mg BID SATHYA Administration Glucagon 1 mg 12/14/21 13:40 Glucagon For Inj 1 Mg Vial IM PRN PRN Hypoglycemia Protocol Glucose 15 gm 12/14/21 13:40 Glucose Oral Gel 15 Gm Of Glucse In 37.5 Gm Tube PO PRN PRN Hypoglycemia Protocol Heparin Sodium (Porcine) 5,000 units
[2021-12-18 14:45] VITALS: BP 139/71; PULSE 77; RESP 14; TEMP 36.4; O2SAT 99
[2021-12-18 16:41] LABS: Glucose Point of Care 273 mg/dl (65-105)
[2021-12-18 18:47] VITALS: BP 150/71; PULSE 73; RESP 16; TEMP 36.2; O2SAT 98
[2021-12-18 19:37] VITALS: BP 149/70; PULSE 76; RESP 20; TEMP 36.1; O2SAT 99
[2021-12-18] MEDS: metFORMIN HCL XR 500 MG TAB.SR.24H 1000 MG PO (21:06)
[2021-12-18] MEDS: INSULIN GLARGINE (*BKC) 100 UNITS/ML 45 UNITS SUB-Q (21:07)
[2021-12-18] MEDS: ATORVASTATIN 40 MG TABLET PO (21:07)
[2021-12-18] MEDS: EZETIMIBE 10 MG TABLET PO (21:07)
[2021-12-18] MEDS: DOCUSATE SODIUM 100 MG CAPSULE PO (21:39)
[2021-12-19 00:40] VITALS: BP 141/71; PULSE 78; RESP 20; TEMP 35.8; O2SAT 98
[2021-12-19 01:31] LABS: Glucose Point of Care 215 mg/dl (65-105)
[2021-12-19 04:54] VITALS: BP 150/72; PULSE 75; RESP 20; TEMP 36.4; O2SAT 100
[2021-12-19] MEDS: metroNIDAZOLE 250 MG TABLET 500 MG PO (05:46)
[2021-12-19] MEDS: HEPARIN SODIUM 5,000 UNITS/ML VIAL 5000 UNITS SUB-Q (05:47)
[2021-12-19] MEDS: METOCLOPRAMIDE HCL 10 MG TABLET PO (05:47)
[2021-12-19 05:50] LABS: Basophils Percent Auto 0.5 % (0.2-1.2); Eosinophils Absolute Auto 0.3 K/mm3 (0-0.3); Eosinophils Percent Auto 3.9 % (0-4.4); Hematocrit 41.2 % (42.0-52.0); Hemoglobin 13.7 g/dL (14.0-18.0); Immature Granulocyte Absolute 0.02 K/mm3 (0.00-0.031); Immature Granulocyte Percent A 0.3 % (0-0.5); Lymphocytes Absolute Auto 1.01 K/mm3 (0.9-3.2); Lymphocytes Percent Auto 15.8 % (18.3-44.2); Mean Corpuscular HGB Conc 33.3 g/dl (32-36); Mean Corpuscular Hemoglobin 30.9 pg (26-34); Mean Corpuscular Volume 92.8 fl (80-100); Mean Platelet Volume 10.6 fl (7.4-10.4); Monocytes Absolute Auto 0.6 K/mm3 (0.1-0.6); Monocytes Percent Auto 9.7 % (2.6-8.5); Neutrophils Absolute Auto 4.5 K/mm3 (1.3-6.7); Neutrophils Percent Auto 69.8 % (45.5-73.1); Platelet Count Result 246 k/mm3 (150-375); Red Blood Count 4.44 M/mm3 (4.6-6.20); Red Cell Distribution Width 13.6 % (11.5-14.5); White Blood Count 6.4 K/mm3 (4.5-10.0)
--- NOTE | 2021-12-19 06:39 | PM.DS ---
DS: Admitting Diagnosis Discharge Date 12/19/2021 Admitting Diagnosis diabetic ulcer of the toe Acute osteomyelitis of the left foot toe DS: Discharge Diagnosis Discharge Diagnosis (1) Diabetic ulcer of toe associated with diabetes mellitus due to underlying condition: Code(s): E08.621 - Diabetes mellitus due to underlying condition with foot ulcer; L97.509 - Non-pressure chronic ulcer of other part of unspecified foot with unspecified severity Status: Acute Assessment and Plan: Podiatry Dr. Beckwith consulted and appreciate recommendations. Wound care per Podiatry and wound care team. 12/14/21 Imaging is suspicious for Osteomyelitis. Continue Vancomycin to be dosed by pharmacy. Primaxin IV Q6 hours given 12/14-12/16/21, then changed to Cefepime 2 grams Q12 with PO metronidazole 500 mg Q8 hours. Antibiotics discussed with I&D Pharmacist. De-escalate per culture results. 12/15/21 Blood cultures obtained on admission with gram positive clusters in one of two bottles. Likely contaminant. 12/16/21 - left 4th digit ulcer debrided at bedside. Culture sent and pending. Check MRSA nasal swab for colonization. 12/17/21 - partial amputation with tendon release planned this afternoon. 12/18/2021-patient remains pain-free currently. Staphylococcus aureus growing well wound culture and blood culture, possible contaminant in blood culture. Patient remains on vancomycin and cefepime as well as Flagyl. Consider transitioning to doxycycline and Flagyl pending sensitivity reports. (2) Acute osteomyelitis of toe of left foot: Code(s): M86.172 - Other acute osteomyelitis, left ankle and foot Status: Acute Assessment and Plan: As above. Plan for partial amputation 12/17/21 Continue IV broad-spectrum antibiotics as above. He will likely need 4-6 weeks IV abx. 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 Home glucose levels ~200 mg/dL. Glucose checks AC and HS. Hypoglycemic protocol Tight glucose control (<180 mg/dL) for optimal wound healing. Diabetic diet 12/15/21 was treated with Lantus 42 units home does. Trulicity not on formulary. janumet & glipizide held. 12/16/21 increased lantus 45 units daily for glucose 186-234 mg/dL , aspart moderate dose SSI with meals. 12/17/21 Patient NPO for surgery. Hold aspart due to 45 units lantus given last night. Monitor glucose. Resume sitagliptin tomorrow am if eating. 12/18/2021 patient has been able to eat a regular diet therefore his insulin was resumed as well as his oral medications. Continue current management (4) PVD (peripheral vascular disease): Code(s): I73.9 - Peripheral vascular disease, unspecified Status: Chronic Assessment and Plan: Known history of PAD s/p angioplasty LLE 2019. Monitor pedal and posterior tibial pulses daily. maintain tight glucose control to decrease chance of worsening wound. 12/15/21 MAYDA mild PAD: LLE 0.88, RLE 0.64 Resume aspirin 81 mg daily postop. (5) Gastroparesis due to DM: Code(s): E11.43 - Type 2 diabetes mellitus with diabetic autonomic (poly)neuropathy; K31.84 - Gastroparesis Status: Chronic Assessment and Plan: Continue Reglan BID. (6) CHF (congestive heart failure): Qualifiers: Heart failure chronicity: unspecified Heart failure type: unspecified Qualified Code(s): I50.9 - Heart failure, unspecified Code(s): I50.9 - Heart failure, unspecified Status: Chronic Ass
[2021-12-19 07:19] LABS: Albumin Level 3.9 g/dL (3.5-5.1); Bilirubin,Total 0.8 mg/dL (0.2-1.3); Blood Urea Nitrogen 14 mg/dL (9-20); Calcium 8.4 mg/dL (8.4-10.2); Chloride 97 mmol/L (98-107); Estimated Glomerular Filt Rate > 60; Potassium 4.5 mmol/L (3.4-5.0)
[2021-12-19 07:43] LABS: Alanine Aminotransferase 36 U/L (6-50); Alkaline Phosphatase 80 U/L (38-126); Anion Gap 10 mmol/L (8-16); Aspartate Amino Transferase 34 U/L (17-59); Carbon Dioxide 27 mmol/L (22-30); Estimated CRCL calculation 73 ml/min; Glucose 219 mg/dL (65-110); Sodium 134 mmol/L (137-145)
[2021-12-19 07:58] LABS: Glucose Point of Care 188 mg/dl (65-105)
[2021-12-19] MEDS: ASPIRIN 81 MG ENTERIC TABLET PO (09:13)
[2021-12-19] MEDS: glipiZIDE 5 MG TABLET 10 MG PO (09:13)
[2021-12-19] MEDS: CHOLECALCIFEROL 1,000 UNITS TABLET 2000 UNITS PO (09:13)
[2021-12-19] MEDS: PANTOPRAZOLE SODIUM IV 40 MG VIAL IV PUSH (09:14)
== END 2021-12-19 10:15 | disposition home or self-care (01) | DRG 617 ==
LOC: ANHED 08:41 → ANH2MED 14:26
PROVIDERS: Nurse Practitioner Adult Health; Nurse Practitioner Family; Podiatrist Foot & Ankle Surgery; Admitting Provider Student in an Organized Health Care Education/Training Program; Emergency Provider General Practice; PCP Family Medicine; Visit Provider Nurse Practitioner Family
DX: E11.69 Type 2 diabetes mellitus with other specified complication (principal); M86.172 Other acute osteomyelitis, left ankle and foot; E08.621 Diabetes mellitus due to underlying condition with foot ulcer; L97.529 Non-pressure chronic ulcer of other part of left foot with unspecified severity; E11.42 Type 2 diabetes mellitus with diabetic polyneuropathy; I73.9 Peripheral vascular disease, unspecified; E11.43 Type 2 diabetes mellitus with diabetic autonomic (poly)neuropathy; K31.84 Gastroparesis; B95.61 Methicillin susceptible Staphylococcus aureus infection as the cause of diseases classified elsewhere; M20.42 Other hammer toe(s) (acquired), left foot; I11.0 Hypertensive heart disease with heart failure; I50.9 Heart failure, unspecified; Z20.822 Contact with and (suspected) exposure to COVID-19; E78.00 Pure hypercholesterolemia, unspecified; K21.9 Gastro-esophageal reflux disease without esophagitis; I25.10 Atherosclerotic heart disease of native coronary artery without angina pectoris; I48.91 Unspecified atrial fibrillation; M19.90 Unspecified osteoarthritis, unspecified site; E55.9 Vitamin D deficiency, unspecified; E66.9 Obesity, unspecified; Z68.37 Body mass index [BMI] 37.0-37.9, adult; Z95.1 Presence of aortocoronary bypass graft; Z79.4 Long term (current) use of insulin; Z79.82 Long term (current) use of aspirin; Z87.891 Personal history of nicotine dependence
CPT/HCPCS: 36415; 73620; 73660; 80048; 80053; 80202; 82948; 83036; 83735; 84145; 85025; 85027; 85652; 86140; 87040; 87070; 87081; 87147; 87181; 87186; 87205; 88305; 88311; 93922; 96365; 96366; 96367; 99285; A9270; C9113; C9803; J0690; J0692; J0696; J0743; J1644; J1815; J2704; J3370; J7120; U0003; U0005

== ENCOUNTER 2022-02-26 09:26 | Day surgery (SDC) | payer OTHER, MEDICARE, SELFPAY ==
[2022-02-17 14:24] VITALS: BMI 38.4
--- NOTE | 2022-02-26 09:09 | WPDHPUPDATE1 ---
History and Physical Update Update Date/Time: 02/26/22 09:09 History and Physical has been reviewed, including an updated exam of the patient. There are NO changes in the patient's condition. Risks, benefits, and alternatives have been discussed and questions answered. Patient agrees to proceed with procedure.
[2022-02-26] MEDS: OFLOXACIN 0.3% OPHTH SOLN 5 ML BTL 1 DROP AFFCTD EYE (10:10)
[2022-02-26] MEDS: TETRACAINE HCL 0.5% OPHTH SOLN 4 ML BTL 1 DROP AFFCTD EYE ×3 (10:10→10:20)
[2022-02-26 10:19] LABS: Glucose Point of Care 158 mg/dl (65-105)
[2022-02-26 10:27] VITALS: BP 172/110; PULSE 66; RESP 20; TEMP 35.9; O2SAT 100
[2022-02-26] MEDS: LIDOCAINE HCL 2% JELLY 5 ML TUBE 1 APPLIC AFFCTD EYE (10:45)
--- NOTE | 2022-02-26 10:47 | WPDANESEPPF ---
Anes - Initial Pre Proc Eval Procedure: Operation Date: 02/26/22 10:30 Proposed Procedures p Cataract Extraction with Lens Implant-Right Eye - Darrell Rucker MD Date/Time: 02/26/22 10:47 Surgeon: Darrell Rucker MD Pre Op Diagnosis: Cataract Right Eye Patient Data Age: 67 Gender: M Height: 1.75 m Weight: 124.4 kg Last Vital Signs Temp 35.9 C L 02/26/22 10:27 Pulse 66 02/26/22 10:27 Resp 20 02/26/22 10:27 BP 172/110 H 02/26/22 10:27 Pulse Ox 100 02/26/22 10:27 O2 Del Method Room Air 02/26/22 10:27 Allergies Allergy/AdvReac Type Severity Reaction Status Date / Time No Known Allergies Allergy Verified 02/26/22 10:23 Home Medications Medication Instructions Recorded Confirmed Type acetaminophen 325 mg tablet 650 mg PO PRN PRN Pain 06/20/19 02/26/22 History (Tylenol) aspirin 81 mg tablet,delayed 81 mg PO DAILY 06/20/19 02/26/22 History release (Adult Low Dose Aspirin) cholecalciferol (vitamin D3) 50 2,000 unit PO DAILY 06/20/19 02/26/22 History mcg (2,000 unit) tablet docusate sodium 100 mg tablet 100 mg PO HS 06/20/19 02/26/22 History metoclopramide HCl 10 mg tablet 10 mg PO BID #180 tabs 09/12/19 02/26/22 Rx ezetimibe 10 mg tablet 10 mg PO HS 03/08/21 02/26/22 History pen needle, diabetic 31 gauge x #100 ea 07/19/21 02/10/22 Rx 5/16 (BD Ultra-Fine Short Pen Needle) insulin glargine 100 unit/mL (3 42 unit subcut DAILY 09/02/21 02/26/22 History mL) subcutaneous pen (Lantus Solostar U-100 Insulin) glipizide 10 mg tablet 10 mg PO BID #180 tabs 12/02/21 02/26/22 Rx doxycycline monohydrate 100 mg 100 mg PO BID #10 caps 12/19/21 02/26/22 Rx capsule atorvastatin 40 mg tablet 40 mg PO QHS #90 tabs 02/05/22 02/26/22 Rx metoprolol succinate 25 mg 25 mg PO DAILY #90 tabs 02/05/22 02/26/22 Rx tablet,extended release 24 hr sitagliptin 100 mg-metformin ER 1 tablet PO QPM #90 tabs 02/05/22 02/26/22 Rx 1,000 mg tablet,extended [id number] (Janumet XR) Laboratory Tests 02/26/22 10:17 POC Capillary Glucose 158 mg/dl H mg/dl (65-105) Patient hx anesthesia problems: post op nausea/vomiting Family hx anesthesia problems: none Results Review: All pre-operative results and documents have been reviewed as part of the pre-operative evaluation. [facility] Past Medical History Medical History Amputated toe Atrial fibrillation -post op CABG CAD (coronary artery disease) CHF (congestive heart failure) ef 45% Diabetes Diabetic peripheral neuropathy Gastroesophageal reflux disease Gastroparesis due to DM 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 History of gout in currently not on any medications no flare-ups History of pericarditis 09/2014 - pot CABG, s/p peicardial window HTN (hypertension) Hypercholesterolemia Osteoarthritis PVD (peripheral vascular disease) 12/2018 LT LEG OPENED ARTERY AT [facility] Vitamin D deficiency Surgical History Surgical History History of angioplasty of peripheral vessel 12/2018 - LLE History of foot surgery (~02/2021) 03/14: Fifth metatarsal head resection right foot. History of hydrocelectomy 08/2011 left Hx of coronary artery bypass graft 2014 4 VESSEL . PERICARDIAL EFFUSION- PERICARDIAL WINDOW Social History Social History Smoking packs per day: 1 Smoking cigarettes per day: 20.0 Years smoked: 30 Smoking pack-years: 30.00 Smoking status: Former smoker Tobacco type: cigarettes Smoking end date: 05/25/10 Alcohol intake: never Substance use: never Substance use type: does not use Living arrangements: with family Additional living arrangements comments: Gender identity (if verbalized by the patient): Male Sexual Orientation (
[2022-02-26] MEDS: HOME MEDICATION 1 EACH AFFCTD EYE (11:13)
[2022-02-26] MEDS: LIDOCAINE HCL 1% PF INJ 5 ML VIAL 1 ML INTRAOCULA (11:13)
[2022-02-26] MEDS: NEOMYCIN/POLYMYXIN/DEXAMETH OP OINT 3.5 GM TUBE 1 APPLIC AFFCTD EYE (11:13)
[2022-02-26 11:28] VITALS: BP 186/83; PULSE 74; RESP 14; O2SAT 100
[2022-02-26] MEDS: acetaZOLAMIDE TAB 250 MG TABLET PO (11:31)
--- NOTE | 2022-02-26 11:33 | P.OP_ITS ---
Procedure Note - Detailed Date of Procedure 02/26/22 Pre-op Diagnosis 1) Cataract Right Eye 2) Miotic pupillary cyst Post-op Diagnosis Same Procedure Performed Complex Cataract Extraction (by Phacoemulsification) and lntraocular Lens Implan t RIGHT eye Surgeon Darrell Rucker MD Description of Procedure The eye was anesthetized with topical 0.75% bupivacaine. After intravenous sedation and placement of monitors, the patient was prepped and draped in the usual sterile manner. A lid speculum was placed. A paracentesis was made, and preservative free 1% lidocaine was instilled in the anterior chamber. The anterior chamber was then filled with Viscoat viscoelastic and Malyugin ring was placed. A artemio keratome was used to create the wound. Continuous tear anterior capsulotomy was performed. The lens was hydro dissected before being removed with phacoemulsification. The remaining lenticular cortex was removed with aspiration. The capsular bag was polished and filled with viscoelastic material. An intraocular lens was chosen, inspected, irrigated and placed within the capsular bag where it was seen to be centered and stable. The ring was removed and viscoelastic material was aspirated. The wound was closed and found to be watertight. Ciloxan drops were placed in the eye. The speculum was removed. A Ramos shield was applied. The patient tolerated the procedure well and left the operating room in satisfactory condition. Implants See chart Complications None Condition Stable Disposition Same day
--- NOTE | 2022-02-26 11:52 | WPDANESPN ---
Anes - Prog Note Post-Op Date/Time: 02/26/22 11:52 Cardiovascular status: normal Respiratory status: normal Airway patency: baseline Mental status: baseline Post-Op hydration status: normal Vital Signs: Last Vital Signs Temp 35.9 C L 02/26/22 10:27 Pulse 74 02/26/22 11:28 Resp 14 02/26/22 11:28 BP 186/83 H 02/26/22 11:28 Pulse Ox 100 02/26/22 11:28 O2 Del Method Room Air 02/26/22 11:28 Pain Score (VAS): 0 02/26/22 10:17 POC Capillary Glucose 158 H Patient Feedback: Patient satisfied with anesthetic care.
== END 2022-02-26 11:57 | disposition home or self-care (01) ==
PROVIDERS: PCP Family Medicine; Visit Provider Student in an Organized Health Care Education/Training Program
PROC: (CPT 66983; principal; 2022-02-26 10:30)
DX: H25.11 Age-related nuclear cataract, right eye (principal)
CPT/HCPCS: 66982

== ENCOUNTER 2022-08-25 15:38 | Outpatient (CLI) | payer OTHER, MEDICARE, SELFPAY ==
[2022-08-25 18:08] LABS: Anion Gap 10 mmol/L (8-16); Blood Urea Nitrogen 21 mg/dL (9-20); Carbon Dioxide 27 mmol/L (22-30); Chloride 101 mmol/L (98-107); Estimated Glomerular Filt Rate > 60; Glucose 140 mg/dL (65-110); HDL Direct 40 mg/dL; Potassium 4.3 mmol/L (3.4-5.0); Sodium 138 mmol/L (137-145)
[2022-08-25 18:09] LABS: Creatinine Urine 74.3 mg/dL
[2022-08-25 18:19] LABS: LDL Cholesterol Direct 106 mg/dL
[2022-08-25 18:43] LABS: MALB Creatinine Ratio < 8.1 mg/g (0-30); Microalbumin Urine Random < 6.0 mg/L (0-16.7)
== END 2022-08-25 15:39 | disposition home or self-care (01) ==
LOC: ANHWCLAB 15:41
PROVIDERS: PCP Family Medicine; Visit Provider Internal Medicine Endocrinology, Diabetes & Metabolism
DX: E11.65 Type 2 diabetes mellitus with hyperglycemia (principal); E78.5 Hyperlipidemia, unspecified; Z71.3 Dietary counseling and surveillance; Z79.4 Long term (current) use of insulin
CPT/HCPCS: 36415; 80048; 82043; 82607; 83718; 83721; 84443

== ENCOUNTER 2023-05-13 10:12 | Emergency (ER) | payer OTHER, MEDICARE, SELFPAY ==
[2023-05-13] VITALS (10 sets, daily range): BP systolic 137–186; BP diastolic 64–88; PULSE 65–84; RESP 12–20; TEMP 36.2–36.7; O2SAT 98–100
--- NOTE | ~2023-05-13 | XR_ITS ---
EXAMINATION: XR chest 1V portable INDICATION: Shortness of breath TECHNIQUE: Portable AP chest at 1034 hours COMPARISON: 05/14/2020 FINDINGS: The lungs are free of acute opacities. No pleural effusion or pneumothorax. Cardiomegaly is noted. Median sternotomy wires and mediastinal surgical clips are seen, likely from prior coronary a rtery bypass grafting. IMPRESSION: 1. Cardiomegaly. Reviewed, dictated and finalized at location B. PREVENTION AUDITOR IMPRESSION: 1. Cardiomegaly.
--- NOTE | ~2023-05-13 | US_ITS ---
EXAMINATION: US scrotum doppler DATE: 05/13/2023 11:58 INDICATION: Testicular pain, history of hydrocele TECHNIQUE: Testicular sonogram utilizing grayscale and Doppler COMPARISON: None. FINDINGS: The right testis measures 4.7 x 2.1 x 3.3 cm. The left testis measures 3.8 x 2.1 x 2.9 cm. There is normal vascular flow to both testes. The right epididymis contains a 5 mm cyst or spermatoce le. The left epididymis contains a 6 mm cyst or spermatocele. There is a 13 mm x 5 mm fluid collectio n in the skin of the left scrotum which could be related to prior surgical change. There is no varico harsh or hydrocele. IMPRESSION: 1. No sonographic correlate for the patient's symptoms. Reviewed, dictated and finalized at location B. [employer]
--- NOTE | 2023-05-13 10:17 | ECG_ITS ---
Measurements Intervals [place] Rate: 70 P: 65 MO: 175 QRS: 90 QRSD: 157 T: -9 QT: 394 QTc: 427 Interpretive Statements SINUS RHYTHM WITH SINUS ARRHYTHMIA RIGHT BUNDLE BRANCH BLOCK MODERATE T-WAVE ABNORMALITY, CONSIDER LATERAL ISCHEMIA ABNORMAL ECG NO PREVIOUS ECG AVAILABLE FOR COMPARISON Electronically Signed On 05-13-2023 15:58:35 GENERAL SUPERVISOR by Beto Arcos M.D.
[2023-05-13 10:30] LABS: Basophils Percent Auto 0.2 % (0.2-1.2); Eosinophils Percent Auto 0.3 % (0-4.4); Hematocrit 47.3 % (42.0-52.0); Immature Granulocyte Absolute 0.04 K/mm3 (0.00-0.031); Immature Granulocyte Percent A 0.7 % (0-0.5); Lymphocytes Absolute Auto 0.83 K/mm3 (0.9-3.2); Mean Corpuscular HGB Conc 31.7 g/dl (32-36); Mean Corpuscular Hemoglobin 30.2 pg (26-34); Mean Corpuscular Volume 95.2 fl (80-100); Mean Platelet Volume 10.5 fl (7.4-10.4); Monocytes Absolute Auto 0.4 K/mm3 (0.1-0.6); Monocytes Percent Auto 6.7 % (2.6-8.5); Neutrophils Absolute Auto 4.6 K/mm3 (1.3-6.7); Neutrophils Percent Auto 78.1 % (45.5-73.1); Platelet Count Result 224 k/mm3 (150-375); Red Blood Count 4.97 M/mm3 (4.6-6.20); Red Cell Distribution Width 15.2 % (11.5-14.5); White Blood Count 5.9 K/mm3 (4.5-10.0)
[2023-05-13 10:42] LABS: Partial Thromboplastin Time 28.2 SECONDS (22.3-36.8)
[2023-05-13 10:43] LABS: Alanine Aminotransferase 30 U/L (6-50); Albumin Level 4.3 g/dL (3.5-5.1); Alkaline Phosphatase 78 U/L (38-126); Anion Gap 9 mmol/L (8-16); Aspartate Amino Transferase 31 U/L (17-59); Blood Urea Nitrogen 14 mg/dL (9-20); Carbon Dioxide 27 mmol/L (22-30); Chloride 102 mmol/L (98-107); Estimated CRCL calculation 75 ml/min; Estimated Glomerular Filt Rate > 60; Glucose 177 mg/dL (65-110); Potassium 4.3 mmol/L (3.4-5.0); Sodium 138 mmol/L (137-145)
--- NOTE | 2023-05-13 10:46 | ED.GENADULT ---
HPI - General Adult General Chief complaint: Shortness of Breath/Dyspnea Stated complaint: I don't feel good Time Seen by Provider: 05/13/23 10:45 Source: patient Limitations: no limitations History of Present Illness HPI narrative: [age] year with shortness of general complaint of I don't feel good. he has been experiencing dyspnea exertion past 2 days. He has a history of CHF and atrial fibrillation not currently anticoagulant other than 81 mg aspiring although he was previously on Eliquis. extensive cardiac disease as well as he has history quadruple bypass surgery; cardiothoracic surgeon through [facility]. 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 he works [employer] this requires him to walk around store but this has become more difficult for him to do. He otherwise states he has no other underlying respiratory conditions. He denies any cough or chest pain. He does experience palpitations at rest and with exertion. His last bowel was yesterday. He denies any diarrhea, constipation, or blood in stool. He does note that he has been having pain in his groin, particularly when he takes a deep breath. No nausea or vomiting. denies any dysuria, hematuria, urgency, frequency. Denies any penile discharge. has a history of hydrocele. Related Data Home Medications Medication Instructions Recorded Confirmed acetaminophen 325 mg tablet 650 mg PO PRN PRN Pain 06/20/19 04/21/23 (Tylenol) aspirin 81 mg tablet,delayed 81 mg PO DAILY 06/20/19 04/21/23 release (Adult Low Dose Aspirin) cholecalciferol (vitamin D3) 50 2,000 unit PO DAILY 06/20/19 04/21/23 mcg (2,000 unit) tablet Allergies Allergy/AdvReac Type Severity Reaction Status Date / Time No Known Allergies Allergy Verified 04/21/23 10:35 [facility] Past Medical History Medical History Acute osteomyelitis of toe of left foot Atrial fibrillation -post op CABG Body mass index (BMI) 35 or more (06/27/15) CAD (coronary artery disease) CHF (congestive heart failure) ef 45% Diabetic peripheral neuropathy Erectile dysfunction due to diseases classified elsewhere Gastroesophageal reflux disease Gastroparesis due to DM Hammertoe of left foot 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 History of gout in currently not on any medications no flare-ups History of pericarditis 09/2014 - pot CABG, s/p peicardial window HTN (hypertension) Hypercholesterolemia Hyperlipidemia, unspecified termite exterminator helper (current) use of insulin Low serum testosterone Obesity, unspecified (06/27/15) Osteoarthritis Other chronic pain PVD (peripheral vascular disease) 12/2018 LT LEG OPENED ARTERY AT [facility] Type 2 diabetes mellitus with hyperlipidemia Vitamin D deficiency Surgical History Surgical History History of angioplasty of peripheral vessel 12/2018 - LLE History of foot surgery (~02/2021) 03/14: Fifth metatarsal head resection right foot. History of four vessel coronary artery bypass graft History of hydrocelectomy 08/2011 left Hx of coronary artery bypass graft 2014 4 VESSEL . PERICARDIAL EFFUSION- PERICARDIAL WINDOW Social History Social History (Updated 05/17/23 @ 16:55 by Karina Cuevas MD) Smoking packs per day: 1 Smoking cigarettes per day: 20.0 Years smoked: 30 Smoking pack-years: 30.00 Smoking status: Former smoker Tobacco type: cigarettes Smoking end date: 05/25/10 Alcohol intake: never Substance use: never Substance use type: does not use Lack of Transportation: No Lack of Food: Never True Current Housing: I Have Housing Concerned About Future Housing: No Difficulty Paying Gas/Electric Bills: YES Difficulty Paying for Meds: YES Currently Unemployed: No Education: High School Diploma/GED Difficulty w/ Childcare or Family
[2023-05-13 10:55] LABS: NT Pro B Type Natriuretic Pept 279 pg/mL (19.9-100); Troponin I < 0.012 ng/mL (0.000-0.034)
--- NOTE | 2023-05-13 11:23 | PC.NURSE ---
assumed care of pt. pt in ultrasound at this time.
[2023-05-13 11:34] LABS: D Dimer < 0.27 ug/mL (<0.48)
[2023-05-13 12:33] LABS: Influenza A QL RT-PCR Negative (Negative); Influenza B QL RT-PCR Negative (Negative); SARS-CoV-2 RNA PCR Negative (Negative)
== END 2023-05-13 13:04 | disposition home or self-care (01) ==
PROVIDERS: Emergency Provider Student in an Organized Health Care Education/Training Program; PCP Family Medicine
DX: E11.65 Type 2 diabetes mellitus with hyperglycemia (principal); R06.00 Dyspnea, unspecified; Z20.822 Contact with and (suspected) exposure to COVID-19; N50.819 Testicular pain, unspecified; I25.10 Atherosclerotic heart disease of native coronary artery without angina pectoris; I50.9 Heart failure, unspecified; I11.0 Hypertensive heart disease with heart failure; I48.91 Unspecified atrial fibrillation; E11.42 Type 2 diabetes mellitus with diabetic polyneuropathy; E11.43 Type 2 diabetes mellitus with diabetic autonomic (poly)neuropathy; K31.84 Gastroparesis; E11.51 Type 2 diabetes mellitus with diabetic peripheral angiopathy without gangrene; I73.9 Peripheral vascular disease, unspecified; E66.9 Obesity, unspecified; Z68.41 Body mass index [BMI] 40.0-44.9, adult; E78.00 Pure hypercholesterolemia, unspecified; E55.9 Vitamin D deficiency, unspecified; M19.90 Unspecified osteoarthritis, unspecified site; K21.9 Gastro-esophageal reflux disease without esophagitis; Z95.1 Presence of aortocoronary bypass graft; Z98.61 Coronary angioplasty status; Z87.891 Personal history of nicotine dependence; Z89.422 Acquired absence of other left toe(s); Z79.82 Long term (current) use of aspirin; I51.7 Cardiomegaly; Z79.4 Long term (current) use of insulin; Z79.84 Long term (current) use of oral hypoglycemic drugs; I45.10 Unspecified right bundle-branch block; R94.31 Abnormal electrocardiogram [ECG] [EKG]
CPT/HCPCS: 36415; 71045; 76870; 80053; 83880; 84484; 85025; 85380; 85610; 85730; 87636; 93005; 93976; 99284

== ENCOUNTER 2023-07-01 01:10 | Day surgery (SDC) | payer OTHER, MEDICARE, SELFPAY ==
[2023-06-09 08:09] VITALS: BMI 40.6
--- NOTE | 2023-06-29 11:49 | SUR.PREOP ---
Patient called regarding upcoming procedure. Reviewed preop instructions, appointment times, and procedure prep.
[2023-07-01 06:55] VITALS: BP 122/57; PULSE 70; RESP 18; TEMP 36.2; O2SAT 100
[2023-07-01] MEDS: LACTATED RINGERS 1,000 ML 150 ML IV CONT (07:16)
[2023-07-01 07:18] LABS: Glucose Point of Care 123 mg/dl (65-105)
--- NOTE | 2023-07-01 07:39 | WPDANESEPPF ---
Anes - Initial Pre Proc Eval Procedure: Operation Date: 07/01/23 08:00 Proposed Procedures p Screening Colonoscopy - Clive Multani MD Date/Time: 07/01/23 07:39 Surgeon: Clive Multani MD Pre Op Diagnosis: neoplasm screening Patient Data Age: 68 Gender: M Height: 1.75 m Weight: 125 kg Last Vital Signs Temp 97.1 F L 07/01/23 06:55 Pulse 70 07/01/23 06:55 Resp 18 07/01/23 06:55 BP 122/57 L 07/01/23 06:55 Pulse Ox 100 07/01/23 06:55 O2 Del Method Room Air 07/01/23 06:55 Allergies Allergy/AdvReac Type Severity Reaction Status Date / Time No Known Allergies Allergy Verified 07/01/23 06:50 Home Medications Medication Instructions Recorded Confirmed Type acetaminophen 325 mg tablet 650 mg PO PRN PRN Pain 06/20/19 06/09/23 History (Tylenol) aspirin 81 mg tablet,delayed 81 mg PO DAILY 06/20/19 06/09/23 History release (Adult Low Dose Aspirin) cholecalciferol (vitamin D3) 50 2,000 unit PO DAILY 06/20/19 06/09/23 History mcg (2,000 unit) tablet metoclopramide HCl 10 mg tablet 10 mg PO BID #180 tabs 09/12/19 06/09/23 Rx flash glucose sensor (FreeStyle #6 ea 08/25/22 04/21/23 Rx Hemant 2 Sensor kit) pen needle, diabetic 31 gauge x #400 ea 12/11/22 04/21/23 Rx 5/16 (BD Ultra-Fine Short Pen Needle) atorvastatin 80 mg tablet 80 mg PO QHS #90 tabs 04/21/23 06/09/23 Rx metformin 500 mg tablet,extended 500 mg PO BID 3 months #180 tabs 04/21/23 06/09/23 Rx release 24 hr metoprolol succinate 25 mg 25 mg PO DAILY #90 tabs 04/29/23 07/01/23 Rx tablet,extended release 24 hr dapagliflozin propanediol 5 mg 5 mg PO DAILY 06/09/23 06/09/23 History tablet (Farxiga) insulin aspart U-100 100 unit/mL See Rx Instructions .Route 06/15/23 Rx (3 mL) subcutaneous pen (Novolog .COMPLEX #27 mL FlexPen U-100 Insulin aspart) Lantus Solostar U-100 Insulin 100 See Rx Instructions .Route 06/29/23 Rx unit/mL (3 mL) subcutaneous pen .COMPLEX #30 mL (insulin glargine) Laboratory Tests 07/01/23 07:15 POC Capillary Glucose 123 H mg/dl (65-105) Patient hx anesthesia problems: none Family hx anesthesia problems: none Results Review: All pre-operative results and documents have been reviewed as part of the pre-operative evaluation. [facility] Past Medical History Medical History Acute osteomyelitis of toe of left foot Atrial fibrillation -post op CABG Body mass index (BMI) 35 or more (06/27/15) CAD (coronary artery disease) CHF (congestive heart failure) ef 45% Diabetic peripheral neuropathy Erectile dysfunction due to diseases classified elsewhere Gastroesophageal reflux disease Gastroparesis due to DM Hammertoe of left foot 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 History of gout in currently not on any medications no flare-ups History of pericarditis 09/2014 - pot CABG, s/p peicardial window HTN (hypertension) Hypercholesterolemia Hyperlipidemia, unspecified FDC (current) use of insulin Low serum testosterone Obesity, unspecified (06/27/15) Osteoarthritis Other chronic pain PVD (peripheral vascular disease) 12/2018 LT LEG OPENED ARTERY AT [facility] Type 2 diabetes mellitus with hyperlipidemia Vitamin D deficiency Surgical History Surgical History History of angioplasty of peripheral vessel 12/2018 - LLE History of foot surgery (~02/2021) 03/14: Fifth metatarsal head resection right foot. History of four vessel coronary artery bypass graft History of hydrocelectomy 08/2011 left Hx of coronary artery bypass graft 2014 4 VESSEL . PERICARDIAL EFFUSION- PERICARDIAL WINDOW Social History Social History (Updated 05/17/23 @ 16:55 by Karina Cuevas MD) Smoking packs per day: 1 Smoking cigarettes per day: 20.0 Years smok
--- NOTE | 2023-07-01 07:41 | PM.HPGS ---
History of Present Illness History of Present Illness Consent: Risks, benefits, and alternatives have been discussed and questions answered. Patient agrees to proceed with procedure. Chief complaint: neoplasm screening Narrative: Wilton Lee is a 68 year old male here for first screening colonoscopy Review of Systems Constitutional: Constitutional: Denies headache(s) and Denies weakness Eyes: Eyes: Denies blurry vision ENT: Reports Normal hearing present, Denies headache(s) and Denies neck pain Cardiovascular: Cardiovascular: Denies chest pain and Denies dyspnea Respiratory: Respiratory: Denies dyspnea Gastrointestinal: Gastrointestinal: Reports no additional gastrointestinal complaints Genitourinary: Genitourinary: Denies dysuria Musculoskeletal: Musculoskeletal: Denies neck pain Integumentary/Breasts: Skin/Breast: Denies dry skin Neurologic: Reports Normal hearing present, Denies headache(s) and Denies weakness Psychiatric: Psychiatric: Denies anxiety Endocrine: Endocrine: Denies change in body appearance Hematologic/Lymphatic: Hematologic/Lymphatic: Denies easy bleeding Allergic/Immunologic: Allergic/Immunologic: Denies urticaria PMFSH Past Medical History Medical History Acute osteomyelitis of toe of left foot Atrial fibrillation -post op CABG Body mass index (BMI) 35 or more (06/27/15) CAD (coronary artery disease) CHF (congestive heart failure) ef 45% Diabetic peripheral neuropathy Erectile dysfunction due to diseases classified elsewhere Gastroesophageal reflux disease Gastroparesis due to DM Hammertoe of left foot 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 History of gout in currently not on any medications no flare-ups History of pericarditis 09/2014 - pot CABG, s/p peicardial window HTN (hypertension) Hypercholesterolemia Hyperlipidemia, unspecified penitentiary (current) use of insulin Low serum testosterone Obesity, unspecified (06/27/15) Osteoarthritis Other chronic pain PVD (peripheral vascular disease) 12/2018 LT LEG OPENED ARTERY AT [facility] Type 2 diabetes mellitus with hyperlipidemia Vitamin D deficiency Surgical History Surgical History History of angioplasty of peripheral vessel 12/2018 - LLE History of foot surgery (~02/2021) 03/14: Fifth metatarsal head resection right foot. History of four vessel coronary artery bypass graft History of hydrocelectomy 08/2011 left Hx of coronary artery bypass graft 2014 4 VESSEL . PERICARDIAL EFFUSION- PERICARDIAL WINDOW Social History Social History (Updated 05/17/23 @ 16:55 by Karina Cuevas MD) Smoking packs per day: 1 Smoking cigarettes per day: 20.0 Years smoked: 30 Smoking pack-years: 30.00 Smoking status: Former smoker Tobacco type: cigarettes Smoking end date: 05/25/10 Alcohol intake: former Substance use: never Substance use type: does not use Lack of Transportation: No Lack of Food: Never True Current Housing: I Have Housing Concerned About Future Housing: No Difficulty Paying Gas/Electric Bills: YES Difficulty Paying for Meds: YES Currently Unemployed: No Education: High School Diploma/GED Difficulty w/ Childcare or Family Care: No Living arrangements: alone Additional living arrangements comments: Occupation/Education: occupation Additional occupation/education comments: [employer] Gender identity (if verbalized by the patient): Male Sexual Orientation (if Verbalized by the Patient): Straight or Heterosexual Spiritual care concerns: No Meds Home Medications and Allergies Home Medications Medication Instructions Recorded Confirmed Type acetaminophen 325 mg tablet 650 mg PO PRN PRN Pain 06/20/19 06/09/23 History (Tylenol) aspirin 81 mg tablet,delayed 81 mg
[2023-07-01 08:07] VITALS: BP 122/52; PULSE 70; RESP 23; O2SAT 100
[2023-07-01 08:17] VITALS: BP 118/53; PULSE 67; RESP 20; O2SAT 99
[2023-07-01 08:24] LABS: Glucose Point of Care 134 mg/dl (65-105)
[2023-07-01 08:27] VITALS: BP 129/54; PULSE 68; RESP 22; O2SAT 100
== END 2023-07-01 08:43 | disposition home or self-care (01) ==
PROVIDERS: PCP Family Medicine; Referring Provider Nurse Practitioner Family; Visit Provider Internal Medicine Gastroenterology
PROC: 0DJD8ZZ Inspection of Lower Intestinal Tract, Via Natural or Artificial Opening Endoscopic (ICD-10-PCS; CPT 45378; principal; 2023-07-01 08:00)
DX: Z12.11 Encounter for screening for malignant neoplasm of colon (principal); D12.2 Benign neoplasm of ascending colon; D12.3 Benign neoplasm of transverse colon; K63.5 Polyp of colon; K64.8 Other hemorrhoids; K57.30 Diverticulosis of large intestine without perforation or abscess without bleeding; E78.5 Hyperlipidemia, unspecified; E11.42 Type 2 diabetes mellitus with diabetic polyneuropathy; I11.0 Hypertensive heart disease with heart failure; I50.9 Heart failure, unspecified; N52.1 Erectile dysfunction due to diseases classified elsewhere; K21.9 Gastro-esophageal reflux disease without esophagitis; K31.84 Gastroparesis; G89.29 Other chronic pain; E66.01 Morbid (severe) obesity due to excess calories; Z68.41 Body mass index [BMI] 40.0-44.9, adult; Z79.4 Long term (current) use of insulin; Z79.82 Long term (current) use of aspirin; Z79.85 Long-term (current) use of injectable non-insulin antidiabetic drugs; Z79.84 Long term (current) use of oral hypoglycemic drugs; Z98.890 Other specified postprocedural states; Z95.1 Presence of aortocoronary bypass graft; Z87.891 Personal history of nicotine dependence; Z86.79 Personal history of other diseases of the circulatory system
CPT/HCPCS: 45380; 45385; 82948; 88305; J2704; J7120

== ENCOUNTER 2023-09-06 16:03 | Emergency (ER) | payer MEDICARE, SELFPAY ==
--- NOTE | ~2023-09-06 | XR_ITS ---
EXAMINATION: XR foot RT min 3V DATE: 09/06/2023 17:36 INDICATION: Right great toe infection. TECHNIQUE: 3 views of right foot were obtained. COMPARISON: None. FINDINGS: There is mild hallux valgus. No fracture. Head and neck of fifth metatarsal are absent. The re is mild osteoarthritis of first metatarsophalangeal joint and many of the interphalangeal joints a nd midfoot joints. There are enthesophytes at the posterior and plantar aspects of calcaneal tuberosi ty. IMPRESSION: 1. Polyarticular osteoarthritis. 2. Mild hallux valgus. 3. Absent head and neck of fifth metatarsal, likely from old surgery or infection. Reviewed, dictated and finalized at location E. IMPRESSION: 1. Polyarticular osteoarthritis. 2. Mild hallux valgus. 3. Absent head and neck of fifth metatarsal, likely from old surgery or infecti on.
--- NOTE | ~2023-09-06 | US_ITS ---
EXAMINATION: US arterial duplex LE RT DATE: 09/06/2023 18:50 INDICATION: Vasculopathy. TECHNIQUE: Multiple grayscale and Doppler ultrasound images of the right lower limb were obtained. COMPARISON: None FINDINGS: Peak systolic velocity is 100 cm/s in right common femoral artery, 438 cm/s in distal right common femoral artery, 159 cm/s in proximal superficial femoral artery, 139 cm/s in proximal profund a femoral artery, 73 cm/s in mid superficial femoral artery, 88 cm/s distal superficial femoral arter y, and 150 cm/s in distal popliteal artery. There is no flow in distal popliteal artery, distal poste rior tibial artery, or peroneal artery. Peak systolic velocity is 39 cm/s in distal anterior tibial a rtery, 56 cm/s in dorsalis pedis. IMPRESSION: 1. Moderate to severe stenosis in right common femoral artery and right superficial femoral artery. 2. Total occlusion of distal popliteal artery, peroneal artery, and posterior tibial artery. 3. Reconstitution of flow in anterior tibial artery. Reviewed, dictated and finalized at location E. IMPRESSION: 1. Moderate to severe stenosis in right common femoral artery and right superfi cial femoral artery. 2. Total occlusion of distal popliteal artery, peroneal artery, and posterior t ibial artery. 3. Reconstitution of flow in anterior tibial artery.
--- NOTE | ~2023-09-06 | CT_ITS ---
EXAMINATION: CTA LE RT DATE: 09/06/2023 20:46 INDICATION: Peripheral arterial disease. Right great toe ulcer. TECHNIQUE: Computed tomographic angiography (CTA) of the right lower extremity was performed with 150 mL Omnipaque-350 intravenous contrast. Automated exposure control and iterative reconstruction techn ique were employed. The dose-length product was 867.11 mGy-cm. Maximum intensity projection 3D-recons tructions of the arteries were created by the technologist on a separate workstation. COMPARISON: None. FINDINGS: There is moderate stenosis of right common femoral artery. There is no significant stenosis of profun da femoris, superficial femoral artery, or popliteal artery. Anterior tibial artery has a high origin from popliteal artery. There is moderate stenosis of proximal right anterior tibial artery. There is total occlusion of proximal right anterior tibial artery with reconstitution. There is total occlusi on of tibioperoneal trunk with reconstitution. There is total occlusion of posterior tibial artery an d peroneal artery. There is moderate right hip osteoarthritis and moderate right knee osteoarthritis. There is polyarticular osteoarthritis in the foot. IMPRESSION: 1. Moderate stenosis of right common femoral artery. 2. Total occlusion of right anterior tibial artery with reconstitution. 3. Total occlusion of right tibioperoneal trunk with reconstitution. 4. Total occlusion of right posterior tibial artery and right peroneal artery. Reviewed, dictated and finalized at location E.
--- NOTE | ~2023-09-06 | CT_ITS ---
EXAMINATION: CT brain wo con DATE: 09/06/2023 20:46 INDICATION: Vasculopathy. TECHNIQUE: Computed tomography (CT) of the head was performed without intravenous contrast. The mA wa s adjusted according to patient size. Iterative reconstruction technique was employed. The dose-lengt h product was 605.33 mGy-cm. COMPARISON: None FINDINGS: There are scattered areas of low attenuation in the cerebral white matter. There is no intr acranial hemorrhage, acute infarction, or abnormal intracranial mass lesion. The ventricles are milagro l in size. There are likely changes of ocular lens replacement surgeries. There is mild mucosal thick ening in the paranasal sinuses. There is a small right mastoid effusion. IMPRESSION: 1. Mild nonspecific cerebral white matter disease, which likely represents chronic small vessel ische raghav disease. Reviewed, dictated and finalized at location E. IMPRESSION: 1. Mild nonspecific cerebral white matter disease, which likely represents frit mixer and burner lorrie small vessel ischemic disease.
[2023-09-06 16:06] VITALS: BP 170/85; PULSE 97; RESP 19; TEMP 36.6; O2SAT 97
--- NOTE | 2023-09-06 17:11 | ED.WOUNDLAC ---
HPI - Wound/Laceration General Chief Complaint: Wound/Laceration <Nina Liz PA-C - Last Filed: 09/07/23 02:41> Stated Complaint: diabete ulcer <BENEDICT Perez Last Filed: 09/07/23 02:41> Time Seen by Provider: 09/06/23 17:02 <BENEDICT Perez Last Filed: 09/07/23 02:41> History of Present Illness HPI narrative: 68-year-old male with history of insulin-dependent type 2 diabetes, hypertension, hyperlipidemia, CAD s/p CABG presents to the emergency department for right great toe erythema and pain over the past few days. Patient states since June he has been following with Dr. Kidd for a ulcerations to his right great toe. Patient states he has been having close follow-up with Dr. Kidd and changing bandages every few days. Reports he was taking antibiotics when the ulceration first appeared. States 3 days ago he noticed increasing surrounding redness, pain and purple discoloration to his great toe and came into the ED for further evaluation. He also states that the onset of symptoms he was having some nausea and emesis that has since resolved. Denies known fevers. <BENEDICT Perez Last Filed: 09/07/23 02:41> Related Data Home Medications: Home Medications Medication Instructions Recorded Confirmed acetaminophen 325 mg tablet 650 mg PO PRN PRN Pain 06/20/19 06/09/23 (Tylenol) aspirin 81 mg tablet,delayed 81 mg PO DAILY 06/20/19 06/09/23 release (Adult Low Dose Aspirin) cholecalciferol (vitamin D3) 50 2,000 unit PO DAILY 06/20/19 06/09/23 mcg (2,000 unit) tablet dapagliflozin propanediol 5 mg 5 mg PO DAILY 06/09/23 06/09/23 tablet (Farxiga) <BENEDICT Perez Last Filed: 09/07/23 02:41> Allergies/Adverse Reactions: Allergies Allergy/AdvReac Type Severity Reaction Status Date / Time No Known Allergies Allergy Verified 09/06/23 16:08 <BENEDICT Perez Last Filed: 09/07/23 02:41> Review of Systems Review of Systems: CONSTITUTIONAL: Denies fever, chills, or sweats. EYES: Denies visual changes, redness, or discharge. ENT: Denies rhinorrhea, congestion, sore throat, or otalgia. CARDIOVASCULAR: Denies chest pain, palpitations, or edema. RESPIRATORY: Denies cough or dyspnea. GASTROINTESTINAL: Denies abdominal pain, nausea, vomiting, or diarrhea. GENITOURINARY: Denies dysuria or hematuria. SKIN: See HPI MUSCULOSKELETAL: Denies back pain, joint pain, or myalgia. NEUROLOGIC: Denies headache, numbness, or weakness. PSYCHIATRIC: Denies anxiety or depression. <Nina Liz PA-C - Last Filed: 09/07/23 02:41> PENDING SALE TO [facility] Past Medical History Medical History: Medical History Acute osteomyelitis of toe of left foot Atrial fibrillation -post op CABG Body mass index (BMI) 35 or more (06/27/15) CAD (coronary artery disease) CHF (congestive heart failure) ef 45% Diabetic peripheral neuropathy Erectile dysfunction due to diseases classified elsewhere Gastroesophageal reflux disease Gastroparesis due to DM Hammertoe of left foot History of gout in currently not on any medications no flare-ups History of pericarditis 09/2014 - pot CABG, s/p peicardial window HTN (hypertension) Hypercholesterolemia Hyperlipidemia, unspecified rn long term care (current) use of insulin Low serum testosterone Obesity, unspecified (06/27/15) Osteoarthritis Other chronic pain PVD (peripheral vascular disease) 12/2018 LT LEG OPENED ARTERY AT [facility] Type 2 diabetes mellitus with hyperlipidemia Vitamin D deficiency <Nina Liz PA-C - Last Filed: 09/07/23 02:41> Surgical History Surgical History: Surgical History History of angioplasty of peripheral vessel 12/2018 - LLE 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
[2023-09-06 17:39] LABS: Basophils Percent Auto 0.2 % (0.2-1.2); Eosinophils Percent Auto 0.5 % (0-4.4); Hematocrit 33.6 % (42.0-52.0); Hemoglobin 11.4 g/dL (14.0-18.0); Immature Granulocyte Absolute 0.05 K/mm3 (0.00-0.031); Immature Granulocyte Percent A 0.6 % (0-0.5); Lymphocytes Absolute Auto 0.73 K/mm3 (0.9-3.2); Lymphocytes Percent Auto 8.3 % (18.3-44.2); Mean Corpuscular HGB Conc 33.9 g/dl (32-36); Mean Corpuscular Hemoglobin 30.9 pg (26-34); Mean Corpuscular Volume 91.1 fl (80-100); Mean Platelet Volume 10.5 fl (7.4-10.4); Monocytes Absolute Auto 0.6 K/mm3 (0.1-0.6); Monocytes Percent Auto 6.3 % (2.6-8.5); Neutrophils Absolute Auto 7.4 K/mm3 (1.3-6.7); Neutrophils Percent Auto 84.1 % (45.5-73.1); Platelet Count Result 276 k/mm3 (150-375); Red Blood Count 3.69 M/mm3 (4.6-6.20); Red Cell Distribution Width 13.2 % (11.5-14.5); White Blood Count 8.8 K/mm3 (4.5-10.0)
[2023-09-06 17:50] LABS: Lactic Acid Reflex 1.3 mmol/L (0.7-2.0)
[2023-09-06 18:01] LABS: Alanine Aminotransferase 19 U/L (6-50); Albumin Level 4.1 g/dL (3.5-5.1); Alkaline Phosphatase 176 U/L (38-126); Anion Gap 10 mmol/L (4-12); Aspartate Amino Transferase 18 U/L (17-59); Bilirubin,Total 0.6 mg/dL (0.2-1.3); Blood Urea Nitrogen 20 mg/dL (9-20); CRP 8.4 mg/dL (<1.0); Calcium 9.2 mg/dL (8.4-10.2); Carbon Dioxide 23 mmol/L (22-30); Chloride 95 mmol/L (98-107); Estimated CRCL calculation 77 ml/min; Estimated Glomerular Filt Rate > 60; Glucose 527 mg/dL (65-110); Potassium 4.8 mmol/L (3.4-5.0); Sodium 128 mmol/L (137-145)
[2023-09-06 18:11] LABS: Appearance Urine Clear (Clear); Bilirubin Urine Negative (Negative); Blood Urine Negative (Negative); Color Urine Yellow (Yellow); Glucose Urine UA 3+ mg/dL (Negative); Ketones Urine Trace mg/dL (Negative); Leukocyte Esterase Ur Negative LEU/UL (Negative); Nitrate Urine Negative (Negative); Protein Urine Negative (Negative); Urobilinogen Urine 0.2 mg/dL (<2.0); pH Urine 6.5 (5.0-9.0)
[2023-09-06 18:12] LABS: Erythrocyte Sedimentation Rate 130 mm/hr (0-20)
[2023-09-06 18:17] LABS: Specific Grav Ur 1.034 (1.001-1.035)
[2023-09-06 18:18] LABS: Add Urine Microscopic? NO
[2023-09-06] MEDS: metroNIDAZOLE 500 MG/ISO 100ML 500 MG/100 ML BAG 100 MG IVPB (18:57)
[2023-09-06] MEDS: SODIUM CHLORIDE 0.9% IV 1,000 ML 999 ML IV CONT (18:57)
[2023-09-06] MEDS: CEFEPIME 2 GM/NS 50 ML 2 GM/50 ML BAG IVPB (18:58)
[2023-09-06] MEDS: VANCOMYCIN 1,250 MG/NS 250 ML 1,250 MG/250 ML BAG 166.67 MG IVPB ×2 (19:34→21:52)
[2023-09-06 20:11] LABS: Glucose Point of Care 387 mg/dl (65-105)
[2023-09-06 21:54] VITALS: BP 153/76; PULSE 85; RESP 25; TEMP 36.3; O2SAT 97
[2023-09-06 22:53] VITALS: BP 139/79; PULSE 81; RESP 16; O2SAT 99
[2023-09-07] VITALS (23 sets, daily range): BP systolic 109–165; BP diastolic 59–94; PULSE 68–92; RESP 13–26; TEMP 36.6–37.3; O2SAT 95–100
--- NOTE | 2023-09-07 02:04 | PC.NURSE ---
[facility] in [place] called to update that patient may have a bed sometime after 0700 this morning, will call back with an update and bed number when available.
[2023-09-07] MEDS: HYDROcodone/acetaminophen (*CRX) 5-325 MG TABLET 1 TAB PO (03:06)
[2023-09-07] MEDS: metroNIDAZOLE 500 MG/ISO 100ML 500 MG/100 ML BAG 100 MG IVPB ×3 (05:02→22:34)
[2023-09-07 05:40] LABS: Estimated CRCL calculation 85 ml/min; Estimated Glomerular Filt Rate > 60
[2023-09-07] MEDS: SODIUM CHLORIDE 0.9% IV 1,000 ML 50 ML IV CONT (07:31)
[2023-09-07] MEDS: VANCOMYCIN 1,500 MG/NS 500 ML 1,500 MG/500 ML BAG 250 MG IVPB ×2 (08:04→21:00)
[2023-09-07] MEDS: CEFEPIME 2 GM/NS 50 ML 2 GM/50 ML BAG IVPB ×2 (09:56→22:35)
--- NOTE | 2023-09-07 11:02 | PC.NURSE ---
SPOKE TO THE TRANSFER LINE ABOUT BED PLACEMENT. NO BEDS. STILL WAITING FOR DISCHARGES.
--- NOTE | 2023-09-07 14:13 | PC.NURSE ---
spoke with temo at transfer center, she got an update on the patient. verbalized that there was no open beds still at [facility]. Patient updated.
--- NOTE | 2023-09-07 14:23 | PC.NURSE ---
This RN called dietary and ordered a tray per [facility] EDP Dr Sultana.
--- NOTE | 2023-09-07 17:58 | PC.NURSE ---
CALLED [facility] FOR [facility] WAS TOLD NO BEDS AT THIS TIME.
--- NOTE | 2023-09-07 21:43 | PC.NURSE ---
Right great toe appearing to be more blackened, with foot and ankle having increased redness and streaking. provider notified.
[2023-09-07 22:05] LABS: Glucose Point of Care 408 mg/dl (65-105)
--- NOTE | 2023-09-07 23:47 | PC.NURSE ---
Assumed care of pt from MALLORY Felix. Pt resting comfortably in bed. This RN d/c two infusions at this time. call light and urinal within reach.
[2023-09-08] VITALS (10 sets, daily range): BP systolic 133–165; BP diastolic 54–87; PULSE 64–78; RESP 13–23; TEMP 36.4; O2SAT 95–100
[2023-09-08] MEDS: MORPHINE SULFATE (*CRX) 4 MG/ML INJ IV PUSH ×2 (04:12→09:54)
[2023-09-08] MEDS: metroNIDAZOLE 500 MG/ISO 100ML 500 MG/100 ML BAG 100 MG IVPB (06:04)
--- NOTE | 2023-09-08 06:07 | PC.NURSE ---
BG 315mg/dL
[2023-09-08 06:10] LABS: Glucose Point of Care 315 mg/dl (65-105)
--- NOTE | 2023-09-08 07:13 | PC.NURSE ---
report given to Lisa TEJADA at this time.
--- NOTE | 2023-09-08 07:22 | PC.NURSE ---
Breakfast tray ordered for pt.
--- NOTE | 2023-09-08 07:38 | PC.NURSE ---
Pt was offered clean gown, wash cloth to wash face, and basic toiletries and pt declined at this time. Pt was told if he changes his mind to let us know. Pt stated he would.
--- NOTE | 2023-09-08 07:46 | PC.NURSE ---
called [facility] at this time, the only hospital looking at to transfer to is [facility] due to all other hospitals being full
[2023-09-08 07:56] LABS: Estimated CRCL calculation 85 ml/min; Estimated Glomerular Filt Rate > 60
--- NOTE | 2023-09-08 08:02 | PC.NURSE ---
Updated patient regarding [facility] transfer and possible discharges within the facility today. Discussed with patient possibility of calling different facilities later today if no bed available this afternoon. Patient agreeable to plan.
[2023-09-08 09:26] LABS: Vancomycin Trough 12.2 ug/mL (10.0-20.0)
[2023-09-08] MEDS: CEFEPIME 2 GM/NS 50 ML 2 GM/50 ML BAG IVPB (09:40)
[2023-09-08] MEDS: VANCOMYCIN 2,000 MG/NS 500 ML 2,000 MG/500 ML BAG 250 MG IVPB (10:01)
--- NOTE | 2023-09-08 11:53 | PC.NURSE ---
[facility] called for update on pt. Update given. [facility] states wait time is unknown.
--- NOTE | 2023-09-08 12:44 | PC.NURSE ---
[phone] attempted to call report [place] [phone]
== END 2023-09-08 13:31 | disposition short-term general hospital (02) ==
PROVIDERS: Physician Assistant; Emergency Provider Emergency Medicine; PCP Family Medicine
DX: E11.621 Type 2 diabetes mellitus with foot ulcer (principal); L97.519 Non-pressure chronic ulcer of other part of right foot with unspecified severity; L03.115 Cellulitis of right lower limb; E11.65 Type 2 diabetes mellitus with hyperglycemia; E87.1 Hypo-osmolality and hyponatremia; I25.10 Atherosclerotic heart disease of native coronary artery without angina pectoris; I50.9 Heart failure, unspecified; I11.0 Hypertensive heart disease with heart failure; E11.42 Type 2 diabetes mellitus with diabetic polyneuropathy; E55.9 Vitamin D deficiency, unspecified; E11.51 Type 2 diabetes mellitus with diabetic peripheral angiopathy without gangrene; I70.201 Unspecified atherosclerosis of native arteries of extremities, right leg; E11.43 Type 2 diabetes mellitus with diabetic autonomic (poly)neuropathy; K31.84 Gastroparesis; E78.00 Pure hypercholesterolemia, unspecified; K21.9 Gastro-esophageal reflux disease without esophagitis; M19.90 Unspecified osteoarthritis, unspecified site; Z95.1 Presence of aortocoronary bypass graft; Z98.61 Coronary angioplasty status; Z87.891 Personal history of nicotine dependence; Z89.422 Acquired absence of other left toe(s); Z79.82 Long term (current) use of aspirin; Z79.4 Long term (current) use of insulin; Z79.84 Long term (current) use of oral hypoglycemic drugs; M19.071 Primary osteoarthritis, right ankle and foot; M20.11 Hallux valgus (acquired), right foot; I77.1 Stricture of artery; R90.82 White matter disease, unspecified; I70.92 Chronic total occlusion of artery of the extremities
CPT/HCPCS: 36415; 70450; 73630; 73706; 80053; 80202; 81003; 82565; 82948; 83605; 85025; 85652; 86140; 87040; 93926; 96361; 96365; 96366; 96367; 96375; 96376; 99285; A9270; J0692; J1836; J2270; J3370; J7030; Q9967

== ENCOUNTER 2023-12-18 18:45 | Emergency (ER) | payer MEDICARE, SELFPAY ==
[2023-12-18] VITALS (17 sets, daily range): BP systolic 134–191; BP diastolic 70–102; PULSE 56–76; RESP 15–25; TEMP 33.1–36.8; O2SAT 100
--- NOTE | ~2023-12-18 | CT_ITS ---
EXAMINATION: CT brain wo con DATE: 12/18/2023 21:26 INDICATION: ams . TECHNIQUE: Computed tomography (CT) of the head was performed without intravenous contrast. The mA wa s adjusted according to patient size. Iterative reconstruction technique was employed. The dose-lengt h product was 681.00 mGy-cm. COMPARISON: 09/06/2023. FINDINGS: No acute intracranial hemorrhage or extra-axial fluid collection. No hydrocephalus, mass, or herniation. No acute ischemic infarct. Unremarkable dural venous sinus attenuation. No acute osseous abnormality. Ethmoid and bilateral maxillary mucosal thickening, aerated secretions in the left maxillary sinus, m inimal right mastoid fluid, the remaining aerated spaces are clear. Mild atrophy and chronic white matter change. Atherosclerotic intracranial calcification. Bilateral l ens replacements. IMPRESSION: No acute intracranial process. Aerated secretions in the left maxillary sinus may represent acute sinusitis in the appropriate clini kristie context. Reviewed, dictated and finalized at location K. IMPRESSION: No acute intracranial process. Aerated secretions in the left maxillary sinus may represent acute sinusitis in the appropriate clinical context.
--- NOTE | ~2023-12-18 | XR_ITS ---
EXAM: XR foot RT 2V DATE: 12/18/2023 21:31 HISTORY: foot ulceration . COMPARISON: 09/06/2023. FINDINGS: Decreased mineralization. Interval first and second partial metatarsal resections. Old fif th metatarsal head resection. Multiple erosions in the distal aspect of the right third metatarsal an d proximal aspect of the right third proximal phalange. periosteal change along the medial and distal aspect of the third metatarsal and proximal and mid fourth metatarsal. Extensive soft tissue swellin g over the forefoot. Vascular calcifications. IMPRESSION: Findings suspicious for osteomyelitis involving the right third metatarsal head and right third proxi mal phalange. Septic arthritis of the right third MCP joint should be considered in the differential. Periosteal change in the fourth metatarsal may be secondary to altered biomechanics or an additional site of infection.. Reviewed, dictated and finalized at [facility] K. IMPRESSION: Findings suspicious for osteomyelitis involving the right third metatarsal head and right third proximal phalange. Septic arthritis of the right third MCP crystal nt should be considered in the differential. Periosteal change in the fourth me tatarsal may be secondary to altered biomechanics or an additional site of infe ction..
[2023-12-18 18:53] LABS: Glucose Point of Care 95 mg/dl (65-105)
--- NOTE | 2023-12-18 18:56 | ECG_ITS ---
Test Date: 2023-12-18 19:15:33 Measurements Intervals [place] Rate: 52 P: 77 VT: 184 QRS: 82 QRSD: 157 T: 45 QT: 465 QTc: 433 Interpretive Statements SINUS BRADYCARDIA RIGHT BUNDLE BRANCH BLOCK BASELINE ARTIFACT- II, III, AVR, AVL, AVF, V2-V6 ABNORMAL ECG No previous ECG available for comparison Electronically Signed On 12-18-2023 20:51:18 CDT by Vignesh Ryan D.O.
[2023-12-18] MEDS: DEXTROSE 10% 500 ML 250 ML IV CONT (19:28)
[2023-12-18 19:31] LABS: Glucose Point of Care 48 mg/dl (65-105)
[2023-12-18] MEDS: LACTATED RINGERS 1,000 ML 999 ML IV CONT (19:58)
--- NOTE | 2023-12-18 19:58 | ED.RECABL ---
HPI - Recheck/Abnormal Lab/Rx General Chief Complaint: Recheck/Abnormal Lab/Rx Stated Complaint: low BS Time Seen by Provider: 12/18/23 19:12 History of Present Illness HPI narrative: This is a 68-year-old male with a past medical history significant for insulin-dependent type 2 diabetes, hypertension, hyperlipidemia, coronary disease status post CABG. Today patient presents as a medical resuscitation secondary to profound encephalopathy and altered mental status with a blood sugar of 14. Patient was found down by EMS in his home. Patient was obtunded but was protecting his airway was not intubated in field. Patient was provided a total of 50 g of dextrose to IV infusions with improvement in his mentation and blood sugar but rapidly dropping back down CT of the lower levels. Patient was very diaphoretic and tremulous with a rectal temperature 34.7 degree C. collateral information was not available initially but later 5 by family members for arrived to the ED. Patient was recently admitted and discharged from [facility] where he underwent vascular surgery and Podiatry surgery evaluation with amputation of the right hallux for diabetic ulceration and infection. Patient is a brittle diabetic and does not take care of himself according to the son. Unclear patient took more dose of insulin today and did not eat well with the circumstances were behind his obtundation. On my initial evaluation the patient he is arousable verbal and physical stimuli but rapidly goes back to sleep. He maintains protect his airway and intermittently answers my questions appropriately. When he is awake he is awake and oriented to person place and time. He does have active purulent and necrotic material draining from his right foot. Denies any trouble breathing, nausea, vomiting, headache. Related Data Home Medications Medication Instructions Recorded Confirmed acetaminophen 325 mg tablet 650 mg PO PRN PRN Pain 06/20/19 06/09/23 (Tylenol) aspirin 81 mg tablet,delayed 81 mg PO DAILY 06/20/19 06/09/23 release (Adult Low Dose Aspirin) cholecalciferol (vitamin D3) 50 2,000 unit PO DAILY 06/20/19 06/09/23 mcg (2,000 unit) tablet dapagliflozin propanediol 5 mg 5 mg PO DAILY 06/09/23 06/09/23 tablet (Farxiga) Allergies Allergy/AdvReac Type Severity Reaction Status Date / Time No Known Allergies Allergy Verified 04/14/24 16:08 Review of Systems Review of Systems: As described above FOR[facility] Past Medical History Medical History Acute osteomyelitis of toe of left foot Atrial fibrillation -post op CABG Body mass index (BMI) 35 or more (06/27/15) CAD (coronary artery disease) CHF (congestive heart failure) ef 45% Diabetic peripheral neuropathy Erectile dysfunction due to diseases classified elsewhere Gastroesophageal reflux disease Gastroparesis due to DM Hammertoe of left foot History of gout in currently not on any medications no flare-ups History of pericarditis 09/2014 - pot CABG, s/p peicardial window HTN (hypertension) Hypercholesterolemia Hyperlipidemia, unspecified skilled nursing (current) use of insulin Low serum testosterone Obesity, unspecified (06/27/15) Osteoarthritis Other chronic pain PVD (peripheral vascular disease) 12/2018 LT LEG OPENED ARTERY AT [facility] Type 2 diabetes mellitus with hyperlipidemia Vitamin D deficiency Surgical History Surgical History History of angioplasty of peripheral vessel 12/2018 - LLE 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 (~02/2021) 03/14: Fifth metatarsal head resection right foot. History of four vessel coronary artery bypass graft History of hydrocelectomy 08/2011 left Hx of coronary artery bypass graft 2014 4 VESSEL . PERICARDIAL EFFUSION- PERICARDIAL WINDOW
[2023-12-18 20:04] LABS: Basophils Percent Auto 0.3 % (0.2-1.2); Eosinophils Absolute Auto 0.3 K/mm3 (0-0.3); Eosinophils Percent Auto 3.2 % (0-4.4); Hematocrit 34.6 % (42.0-52.0); Hemoglobin 10.8 g/dL (14.0-18.0); Immature Granulocyte Absolute 0.07 K/mm3 (0.00-0.031); Immature Granulocyte Percent A 0.8 % (0-0.5); Lymphocytes Absolute Auto 0.82 K/mm3 (0.9-3.2); Lymphocytes Percent Auto 9.5 % (18.3-44.2); Mean Corpuscular HGB Conc 31.2 g/dl (32-36); Mean Corpuscular Hemoglobin 29.8 pg (26-34); Mean Corpuscular Volume 95.3 fl (80-100); Mean Platelet Volume 9.6 fl (7.4-10.4); Monocytes Absolute Auto 0.8 K/mm3 (0.1-0.6); Monocytes Percent Auto 8.9 % (2.6-8.5); Neutrophils Absolute Auto 6.7 K/mm3 (1.3-6.7); Neutrophils Percent Auto 77.3 % (45.5-73.1); Platelet Count Result 539 k/mm3 (150-375); Red Blood Count 3.63 M/mm3 (4.6-6.20); White Blood Count 8.6 K/mm3 (4.5-10.0)
[2023-12-18 20:12] LABS: INR 1.1; Prothrombin Time 14.7 Seconds (11.1-14.7)
[2023-12-18 20:13] LABS: Glucose Point of Care 79 mg/dl (65-105)
[2023-12-18 20:23] LABS: Alanine Aminotransferase 14 U/L (6-50); Albumin Level 3.6 g/dL (3.5-5.1); Alkaline Phosphatase 90 U/L (38-126); Anion Gap 9 mmol/L (4-12); Aspartate Amino Transferase 23 U/L (17-59); Bilirubin,Total 0.6 mg/dL (0.2-1.3); Blood Urea Nitrogen 11 mg/dL (9-20); Calcium 8.7 mg/dL (8.4-10.2); Carbon Dioxide 27 mmol/L (22-30); Chloride 101 mmol/L (98-107); Estimated CRCL calculation 119 ml/min; Estimated Glomerular Filt Rate > 60; Glucose 46 mg/dL (65-110); Potassium 4.2 mmol/L (3.4-5.0); Sodium 137 mmol/L (137-145)
[2023-12-18 20:30] LABS: Appearance Urine Clear (Clear); Bilirubin Urine Negative (Negative); Blood Urine Negative (Negative); Color Urine Yellow (Yellow); Glucose Urine UA Negative (Negative); Ketones Urine Negative (Negative); Leukocyte Esterase Ur Negative LEU/UL (Negative); Nitrate Urine Negative (Negative); Protein Urine Negative (Negative); Specific Grav Ur 1.012 (1.001-1.035); Urobilinogen Urine 0.2 mg/dL (<2.0)
[2023-12-18 20:37] LABS: Lactic Acid Reflex 2.2 mmol/L (0.7-2.0)
[2023-12-18 20:48] LABS: Add Urine Microscopic? NO
[2023-12-18 20:49] LABS: Glucose Point of Care 99 mg/dl (65-105)
--- NOTE | 2023-12-18 20:50 | PC.NURSE ---
pt visitor stated that patient last was seen well at 1000 by home health nurse seeming normal . pt visitor states that he talked to Joyce at 1700 and seemed, lethargic . pt visitor arrived at pt house and called 911 due to patient blood sugar was 21.
[2023-12-18] MEDS: CEFEPIME 2 GM/NS 50 ML 2 GM/50 ML BAG IVPB (20:53)
[2023-12-18 20:55] LABS: Alveolar/Arterial O2 Gradient 13.6 mmHg; Base Excess ABG 0.9 mEq/l (+/-2.0); Carboxyhemoglobin 0.3 % THb (0-2.0); Device ROOM AIR; Fractional Inspired Oxygen 21 %; HCO3 ABG 26.2 mEq/l (22.0-26.0); Methemoglobin ABG 0.1 %THb (0-1.5); Modified Allen's Test Pass; Oxygen Content ABG 13.8 %vol (16.0-22.0); Oxygen Saturation ABG 95.9 % (95.0-100.0); Oxyhemoglobin 94.8 % THb (90.0-100.0); PCO2 ABG 44.9 mmHg (35.0-45.0); PO2 ABG 82.4 mmHg (80.0-100.0); PO2 FiO2 Ratio Arterial Blood 3.92 %; Reduced Hemoglobin 4.8 %THb (0-5.0); Site Drawn RIGHT RADIAL; Total Hemoglobin 10.3 g/dL (12.0-18.0); pH ABG 7.384 (7.350-7.450)
[2023-12-18] MEDS: AZITHROMYCIN 500 MG/NS 250 ML 500 MG/250 ML BAG 250 MG IVPB (21:35)
[2023-12-18] MEDS: DEXTROSE 10% 1,000 ML 250 ML IV CONT (21:40)
[2023-12-18 21:43] LABS: Glucose Point of Care 120 mg/dl (65-105)
[2023-12-18] MEDS: VANCOMYCIN 1,250 MG/NS 250 ML 1,250 MG/250 ML BAG 166.67 MG IVPB (22:43)
[2023-12-18 23:24] LABS: Reflex Lactic Acid Yes or No Add Lactic
--- NOTE | 2023-12-18 23:39 | PC.NURSE ---
pt requested to keep jerardo hugger due to shivering.
[2023-12-18 23:40] LABS: Glucose Point of Care 193 mg/dl (65-105)
[2023-12-19] VITALS: TEMP 36.9
--- NOTE | 2023-12-19 00:03 | PC.NURSE ---
per edp dr. Amin, pt to continue to receive jerardo hugger treatment for comfort. edp stated that pt temperature should stay below 101. this rn used closed loop communication to confirm treatment. edp dr. fernando verbalized confirmation.
[2023-12-19 00:24] LABS: Lactic Acid 2.6 mmol/L (0.7-2.0)
[2023-12-19 00:30] VITALS: TEMP 37.2
[2023-12-19] MEDS: VANCOMYCIN 1,250 MG/NS 250 ML 1,250 MG/250 ML BAG 166.67 MG IVPB (00:32)
== END 2023-12-19 01:02 | disposition short-term general hospital (02) ==
PROVIDERS: Emergency Medicine; Emergency Provider Student in an Organized Health Care Education/Training Program; PCP Family Medicine
DX: A41.9 Sepsis, unspecified organism (principal); E11.649 Type 2 diabetes mellitus with hypoglycemia without coma; G93.40 Encephalopathy, unspecified; E11.622 Type 2 diabetes mellitus with other skin ulcer; L97.314 Non-pressure chronic ulcer of right ankle with necrosis of bone; I25.10 Atherosclerotic heart disease of native coronary artery without angina pectoris; I48.91 Unspecified atrial fibrillation; I50.9 Heart failure, unspecified; I11.0 Hypertensive heart disease with heart failure; E11.42 Type 2 diabetes mellitus with diabetic polyneuropathy; E11.51 Type 2 diabetes mellitus with diabetic peripheral angiopathy without gangrene; I73.9 Peripheral vascular disease, unspecified; E78.00 Pure hypercholesterolemia, unspecified; E55.9 Vitamin D deficiency, unspecified; E66.9 Obesity, unspecified; Z68.33 Body mass index [BMI] 33.0-33.9, adult; M19.90 Unspecified osteoarthritis, unspecified site; K21.9 Gastro-esophageal reflux disease without esophagitis; Z95.1 Presence of aortocoronary bypass graft; Z98.61 Coronary angioplasty status; Z87.891 Personal history of nicotine dependence; Z89.422 Acquired absence of other left toe(s); Z89.431 Acquired absence of right foot; I45.10 Unspecified right bundle-branch block; R00.1 Bradycardia, unspecified; Z79.84 Long term (current) use of oral hypoglycemic drugs; Z79.82 Long term (current) use of aspirin; Z79.4 Long term (current) use of insulin
CPT/HCPCS: 36415; 36600; 70450; 73620; 80053; 81003; 82375; 82805; 82948; 83050; 83605; 85025; 85610; 85730; 86140; 87040; 87070; 87077; 87186; 87205; 93005; 96361; 96365; 96366; 96367; 96368; 99285; J0456; J0692; J3370; J7120

== ENCOUNTER 2024-05-03 16:00 | Outpatient (CLI) | payer MEDICARE, SELFPAY ==
[2024-05-03 20:57] LABS: Prostate Specific Antigen 3.8 ng/mL (< OR = 4.0)
== END 2024-05-03 16:01 | disposition home or self-care (01) ==
LOC: ANHGOSHLAB 16:01
PROVIDERS: PCP Family Medicine; Visit Provider Family Medicine
DX: R97.20 Elevated prostate specific antigen [PSA] (principal); Z12.5 Encounter for screening for malignant neoplasm of prostate
CPT/HCPCS: 36415; 84153; G0103

== ENCOUNTER 2024-11-03 15:39 | Outpatient (CLI) | payer MEDICARE, SELFPAY ==
[2024-11-03 19:38] LABS: Basophils Percent Auto 0.5 % (0.2-1.2); Eosinophils Absolute Auto 0.1 K/mm3 (0-0.3); Eosinophils Percent Auto 1.6 % (0-4.4); Hematocrit 42.9 % (42.0-52.0); Hemoglobin 14.3 g/dL (14.0-18.0); Immature Granulocyte Absolute 0.04 K/mm3 (0.00-0.031); Immature Granulocyte Percent A 0.6 % (0-0.5); Lymphocytes Absolute Auto 1.06 K/mm3 (0.9-3.2); Lymphocytes Percent Auto 16.9 % (18.3-44.2); Mean Corpuscular HGB Conc 33.3 g/dl (32-36); Mean Corpuscular Hemoglobin 31.9 pg (26-34); Mean Corpuscular Volume 95.8 fl (80-100); Mean Platelet Volume 10.6 fl (7.4-10.4); Monocytes Absolute Auto 0.4 K/mm3 (0.1-0.6); Neutrophils Absolute Auto 4.6 K/mm3 (1.3-6.7); Neutrophils Percent Auto 73.4 % (45.5-73.1); Platelet Count Result 263 k/mm3 (150-375); Red Blood Count 4.48 M/mm3 (4.6-6.20); Red Cell Distribution Width 13.8 % (11.5-14.5); White Blood Count 6.3 K/mm3 (4.5-10.0)
[2024-11-03 19:43] LABS: Iron 107 ug/dL (49-181)
[2024-11-03 21:01] LABS: Percent Iron Saturation 40 % (20-50)
[2024-11-03 21:05] LABS: Alanine Aminotransferase 22 U/L (6-50); Alkaline Phosphatase 84 U/L (38-126); Anion Gap 11 mmol/L (4-12); Aspartate Amino Transferase 29 U/L (17-59); Bilirubin,Total 0.7 mg/dL (0.2-1.3); Blood Urea Nitrogen 21 mg/dL (9-20); Calcium 9.1 mg/dL (8.4-10.2); Carbon Dioxide 25 mmol/L (22-30); Chloride 100 mmol/L (98-107); Estimated Glomerular Filt Rate 54; Glucose 195 mg/dL (65-110); Potassium 4.5 mmol/L (3.4-5.0); Sodium 136 mmol/L (137-145); Total Protein 7.7 g/dL (6.3-8.2)
[2024-11-03 22:09] LABS: Folic Acid 9.9 ng/mL (2.76->20)
== END 2024-11-03 15:40 | disposition home or self-care (01) ==
LOC: ANHGOSHLAB 15:40
PROVIDERS: PCP Family Medicine; Visit Provider Family Medicine
DX: D64.9 Anemia, unspecified (principal); I10 Essential (primary) hypertension
CPT/HCPCS: 36415; 80053; 82607; 82728; 82746; 83540; 83550; 85025

== ENCOUNTER 2025-05-08 09:37 | Outpatient (CLI) | payer MEDICARE, SELFPAY ==
[2025-05-08 11:25] LABS: Alanine Aminotransferase 23 U/L (6-50); Albumin Level 4.1 g/dL (3.5-5.1); Alkaline Phosphatase 90 U/L (38-126); Anion Gap 8 mmol/L (4-12); Aspartate Amino Transferase 34 U/L (17-59); Bilirubin,Total 0.8 mg/dL (0.2-1.3); Blood Urea Nitrogen 15 mg/dL (9-20); Calcium 8.9 mg/dL (8.4-10.2); Carbon Dioxide 27 mmol/L (22-30); Chloride 100 mmol/L (98-107); Cholesterol 133 mg/dL (0-200); Estimated Glomerular Filt Rate > 60; Glucose 122 mg/dL (65-110); HDL Direct 37 mg/dL; Potassium 4.3 mmol/L (3.4-5.0); Sodium 135 mmol/L (137-145); Total Protein 7.9 g/dL (6.3-8.2); Triglycerides 85 mg/dL (<150)
[2025-05-08 11:26] LABS: Magnesium 1.7 mg/dL (1.6-2.3)
[2025-05-08 11:40] LABS: Free T4 Free Thyroxine 1.26 ng/dL (0.78-2.19); MALB Creatinine Ratio 6.6 mg/g (0-30)
[2025-05-08 12:06] LABS: Thyroid Stimulating Hormone 1.970 uIU/mL (0.465-4.680)
[2025-05-08 12:08] LABS: Prostate Specific Antigen 5.2 ng/mL (< OR = 4.0)
[2025-05-08 12:26] LABS: Vitamin B12 446.0 pg/mL (239-931)
== END 2025-05-08 09:38 | disposition home or self-care (01) ==
PROVIDERS: Nurse Practitioner Family; PCP Family Medicine; Visit Provider Nurse Practitioner Family
DX: E11.42 Type 2 diabetes mellitus with diabetic polyneuropathy (principal); Z79.4 Long term (current) use of insulin; E78.5 Hyperlipidemia, unspecified; Z12.5 Encounter for screening for malignant neoplasm of prostate; I10 Essential (primary) hypertension
CPT/HCPCS: 36415; 80053; 80061; 82043; 82306; 82607; 83735; 84153; 84439; 84443; G0103